=== PATIENT | female | born 1940 | race Caucasian/White ===

== ENCOUNTER 2018-08-10 12:52 | Outpatient (REF) | payer MEDICARE, SELFPAY ==
[2018-08-10 13:49] LABS: Anion Gap 10.5 mmol/L (3-11); BUN 21 mg/dL (7-18); CO2 24.5 mmol/L (21.0-32.0); CREATININE 0.94 mg/dL (0.55-1.02); Calcium 9.2 mg/dL (8.5-10.1); Chloride 106 mmol/L (98-107); Estimated GFR 57.44 (mL/min/1.73m2); Glucose 96 mg/dL (70-100); Potassium 4.3 mmol/L (3.5-5.1); Sodium 141 mmol/L (136-145)
[2018-08-10 13:55] LABS: Hemoglobin A1C 5.9 % (4.5-6.2)
== END 2018-08-10 13:12 ==
LOC: NCHCN 12:52
PROVIDERS: PCP Family Medicine; Visit Provider Family Medicine
DX: N18.3 Chronic kidney disease, stage 3 (moderate) (principal); R73.01 Impaired fasting glucose
CPT/HCPCS: 80048; 83036

== ENCOUNTER 2018-12-26 16:40 | Inpatient (IN) | payer MEDICARE, SELFPAY ==
[2018-12-26 16:50] VITALS: BP 194/89; PULSE 77; RESP 16; TEMP 36.6; O2SAT 96
--- NOTE | 2018-12-26 16:55 | DI.CT_ITS ---
SYMPTOM/DIAGNOSIS: RUQ PAIN, THICKENED GALLBLADDER WALL ABDOMEN AND PELVIC CT: The study was carried out according to the usual protocol with an intravenous administration of 100 cc's of Omnipaque 350. The lower chest is unremarkable. The liver is intact. The gallbladder contains a 3.4 by 3.8 cm. gallstone. There is pronounced wall thickening at 10 mm. There is stranding of the pericholecystic fat and findings consistent with acute cholecystitis. The pancreas, spleen and adrenals are normal. There is no ductal dilatation. Note is made of a number of left renal cysts, the largest of which measures 1.3 cm. There is an apparent duodenal diverticulum and there is mild to moderate wall thickening of the distal antrum and pylorus consistent with possible peptic ulcer disease versus inflammation. Neoplasm not entirely excluded. Colonic diverticulosis is identified. There is no evidence of diverticulitis. The appendix is normal. The bladder is unremarkable. Evaluation of the reproductive organs reveals multiple calcifications in uterine fibroids. There is no evidence of free air in the intraperitoneal space. A small quantity of nonspecific free fluid is noted in the pelvis. No acute bony abnormality is seen. The soft tissues are unremarkable. Calcifications are identified in the abdominal aorta. There is no evidence of an aneurysm. There is no evidence of lymphadenopathy. SUMMARY: Wall thickening and pericholecystic fluid and inflammatory changes in the fat consistent with severe cholecystitis. Note is made of moderate wall thickening involving the distal antrum and pylorus which could represent peptic ulcer disease. The differential would also include infection and less likely, neoplas,.
--- NOTE | 2018-12-26 16:58 | W.ED.GENAD ---
Discharge Plan Disposition Patient Disposition: [facility] INPATIENT Condition: Stable Discharge Details Chief Complaint: Chest Pain Clinical Impression: Acute cholecystitis Reason For Visit: ACUTE CHOLECYSTITIS Admit Date/Time: 12/26/18 19:05 Admit Provider: Ashwini Díaz Attending Provider: Ashwini Díaz Primary Care Provider: Tracie Ghosh ED Provider: Darío Montana Medical Decision Making This is a pleasant 78-year-old female with no significant past medical history who takes no medications except for daily aspirin who presents today for evaluation of epigastric pain. The patient has had this for the last 4 days, she describes it as dull and burning. Worse with food. She denies any chest pain arm pain or neck pain. Physical exam demonstrates notable right upper quadrant reproducible tenderness, she has no significant cardiac risk factors except for age. Cardiac workup was benign, however on initial bedside exam was certain concern for gallbladder pathology with her right upper quadrant tenderness. Portable bedside ultrasound demonstrated notably thickened gallbladder wall greater than 6 mm, CT scan demonstrates a gallbladder wall 10 mm thick, with a distended gallbladder and a large gallstone. Laboratory workup shows an elevated white count of 14.5, normal electrolytes, stable renal function, normal bilirubin AST, ALT and troponin. Lipase is also normal. I did contact Dr. Díaz and discussed the case with her, she agreed with the need for surgery. Recommended starting the patient on Zosyn, she did request that I put in bridge admission orders which I have placed. Patient will be seen by Dr. Aguilar in the morning for surgery. I have extensively reviewed the treatment plan with the patient. I have addressed all patient concerns at this time. I have also discussed the plan with the admitting physician and they agree with the current assessment and plan and have agreed to assume responsibility for the patient. All parties demonstrate verbal understanding and agreement with our assessment and plan at this time. EKG 16: Rate 83, intervals normal, sinus rhythm, no significant ST elevations or depressions, inverted T wave in lead III, Q waves present in lead III and aVF. No other significant abnormalities. No evidence of STEMI. FINDINGS: Lower thorax: No acute findings. ABDOMEN: Liver: Normal. No mass. Gallbladder and bile ducts: 3.4 x 3.8 cm partially calcified gallstone. Marked 10 mm wall thickening of the gallbladder with stranding pericholecystic fat inflammation consistent with severe cholecystitis. Pancreas: Normal. No ductal dilation. Spleen: Normal. No splenomegaly. Adrenals: Normal. No mass. Kidneys and ureters: Multiple left renal cysts with the largest measuring 1.3 cm. Stomach and bowel: There is a duodenal diverticulum. Moderate bowel wall thickening in the distal antrum and pylorus consistent with peptic ulcer disease versus infection versus neoplasm. Severe colonic diverticulosis. Appendix: Normal appendix. PELVIS: Bladder: Unremarkable as visualized. Reproductive: There are one or more calcified uterine fibroids. ABDOMEN and PELVIS: Intraperitoneal space: Small amount of nonspecific free fluid in the dependent portion of the pelvis. Bones/joints: No acute fracture. No dislocation. Soft tissues: Unremarkable. Vasculature: Calcification of the abdominal aorta and/or iliac arteries consistent with atherosclerotic vessel disease. Lymph nodes: Normal. No enlarged lymph nodes. IMPRESSION: 1. Marked 10 mm wall thickening of the gallbladder with stranding pericholecystic fat inflammation consistent with severe cholecystitis. 2. Moderate bowel wall thickening in the distal antrum and pylorus consistent with peptic ulcer disease versus infection versus neoplasm. Dictated and Authenticated by: Sunny Bangura MD. Ordering:ROBERTO CARLOS Chanel MD [facility] General Date/Time Provider Initiated Documentation: 12/26/18 16:52. HPI Narrative: This is a 78-year-old female with no significant past medical history however past surgical history of tubal ligation, who presents today for epigastric pain which she describes as dull and burning for the last 4 days. She did take a notable amount of laxative a few days ago but this did not improve her symptoms. She denies any vomiting or diarrhea, but does admit to worsening of the pain with food. She denies any fever or chills. She did go to see her primary care provider today who recommended that she come in here for evaluation of potential cardiac etiology. She denies any history of cardiac disease, family history of cardiac disease, previous tobacco use, or high cholesterol. She has no complaint of shortness of breath, chest pain, shoulder or arm pain, she denies any cough, fever or chills. Said for the epigastric pain she states that there is some right upper quadrant pain as well, but denies any dysuria or hematuria. No other complaints at this time. No Other modifying factors Related Data Home Medications Medication Instructions Recorded Confirmed cholecalciferol (vitamin D3) 2,000 unit PO .QOD 01/05/17 12/26/18 [Vitamin D3] aspirin 325 mg PRN PRN 12/26/18 12/26/18 Allergies Allergy/AdvReac Type Severity Reaction Status Date / Time dog dander Allergy Unverified 12/26/18 17:46 General Stated Complaint: Chest Pain DOV: 2 Review of Systems Review of Systems All systems reviewed & are unremarkable except as noted in HPI and below PFSH Social History Smoking/Tobacco Use Status: Never Alcohol Intake: never Drug use: Never Substance use type: does not use Do you feel safe at home: Yes Do you feel safe in your relationship?: Yes Exam Narrative Exam Narrative: 1.Const: Well-nourished, Well-developed, appearing stated age 2.Eyes: PERRL, no conjunctival injection, and symmetrical lids. 3.ENT: Atraumatic external nose and ears. Moist MM. Neck: Symmetric, trachea midline, No thyromegaly. 4.CVS: +S1/S2, No murmurs or gallops. Peripheral pulses 2+ and equal in all extremities. Brisk capillary refill in all extremities. 5.RESP: Unlabored respiratory effort. Clear to auscultation bilaterally. No wheezes rales or rhonchi 6.GI: Mild epigastric pain, notable right upper quadrant pain on palpation, negative Tapia sign. No pain at McBurney's point. No other significant abnormality. Bedside limited portable ultrasound demonstrates thickening of the gallbladder wall at 6.6 mm. Questionable polyp versus large stone 7.MSK: Normocephalic/Atraumatic, Extremities w/o deformity or ttp No cyanosis or clubbing, Normal movement of all extremities 8.Skin: Warm, Dry. No rashes or lesions. 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 Sensation grossly intact, no focal neurologic deficits. 10.Psych: (AAO) x3. Appropriate mood and affect Course Vital Signs Temperature 36.6 C 12/26/18 16:50 Pulse 77 12/26/18 16:50 Respiratory Rate 16 12/26/18 16:50 Blood Pressure 194/89 H 12/26/18 16:50 Pulse Oximetry 96 12/26/18 16:50 Temperature 36.6 C 12/26/18 16:50 Temperature Source Temporal Artery Scan 12/26/18 16:50 Pulse 77 12/26/18 16:50 Respiratory Rate 16 12/26/18 16:50 Blood Pressure 194/89 H 12/26/18 16:50 Pulse Oximetry 96 12/26/18 16:50 Oxygen Delivery Method Room Air 12/26/18 16:50 Oxygen Flow Rate 0 12/26/18 16:50
--- NOTE | 2018-12-26 17:03 | ED.GENADUL_ITS ---
Discharge Plan Disposition Patient Disposition: [facility] INPATIENT Condition: Stable Discharge Details Chief Complaint: Chest Pain Clinical Impression: Acute cholecystitis Reason For Visit: ACUTE CHOLECYSTITIS Admit Date/Time: 12/26/18 19:05 Admit Provider: Ashwini Díaz Attending Provider: Ashwini Díaz Primary Care Provider: Tracie Ghosh ED Provider: Darío Montana Medical Decision Making This is a pleasant 78-year-old female with no significant past medical history who takes no medications except for daily aspirin who presents today for evaluation of epigastric pain. The patient has had this for the last 4 days, she describes it as dull and burning. Worse with food. She denies any chest pain arm pain or neck pain. Physical exam demonstrates notable right upper quadrant reproducible tenderness, she has no significant cardiac risk factors except for age. Cardiac workup was benign, however on initial bedside exam was certain concern for gallbladder pathology with her right upper quadrant tenderness. Portable bedside ultrasound demonstrated notably thickened gallbladder wall greater than 6 mm, CT scan demonstrates a gallbladder wall 10 mm thick, with a distended gallbladder and a large gallstone. Laboratory workup shows an elevated white count of 14.5, normal electrolytes, stable renal function, normal bilirubin AST, ALT and troponin. Lipase is also normal. I did contact Dr. Díaz and discussed the case with her, she agreed with the need for surgery. Recommended starting the patient on Zosyn, she did request that I put in bridge admission orders which I have placed. Patient will be seen by Dr. Aguilar in the morning for surgery. I have extensively reviewed the treatment plan with the patient. I have addressed all patient concerns at this time. I have also discussed the plan with the admitting physician and they agree with the current assessment and plan and have agreed to assume responsibility for the patient. All parties demonstrate verbal understanding and agreement with our assessment and plan at this time. EKG 16: Rate 83, intervals normal, sinus rhythm, no significant ST elevations or depressions, inverted T wave in lead III, Q waves present in lead III and aVF. No other significant abnormalities. No evidence of STEMI. FINDINGS: Lower thorax: No acute findings. ABDOMEN: Liver: Normal. No mass. Gallbladder and bile ducts: 3.4 x 3.8 cm partially calcified gallstone. Marked 10 mm wall thickening of the gallbladder with stranding pericholecystic fat inflammation consistent with severe cholecystitis. Pancreas: Normal. No ductal dilation. Spleen: Normal. No splenomegaly. Adrenals: Normal. No mass. Kidneys and ureters: Multiple left renal cysts with the largest measuring 1.3 cm. Stomach and bowel: There is a duodenal diverticulum. Moderate bowel wall thickening in the distal antrum and pylorus consistent with peptic ulcer disease versus infection versus neoplasm. Severe colonic diverticulosis. Appendix: Normal appendix. PELVIS: Bladder: Unremarkable as visualized. Reproductive: There are one or more calcified uterine fibroids. ABDOMEN and PELVIS: Intraperitoneal space: Small amount of nonspecific free fluid in the dependent portion of the pelvis. Bones/joints: No acute fracture. No dislocation. Soft tissues: Unremarkable. Vasculature: Calcification of the abdominal aorta and/or iliac arteries consistent with atherosclerotic vessel disease. Lymph nodes: Normal. No enlarged lymph nodes. IMPRESSION: 1. Marked 10 mm wall thickening of the gallbladder with stranding pericholecystic fat inflammation consistent with severe cholecystitis. 2. Moderate bowel wall thickening in the distal antrum and pylorus consistent with peptic ulcer disease versus infection versus neoplasm. Dictated and Authenticated by: Sunny Bangura MD. Ordering:ROBERTO CARLOS Chanel MD [facility] General Date/Time Provider Initiated Documentation: 12/26/18 16:52 . HPI Narrative: This is a 78-year-old female with no significant past medical history however past surgical history of tubal ligation, who presents today for epigastric pain which she describes as dull and burning for the last 4 days. She did take a notable amount of laxative a few days ago but this did not improve her symptoms. She denies any vomiting or diarrhea, but does admit to worsening of the pain with food. She denies any fever or chills. She did go to see her primary care provider today who recommended that she come in here for evaluation of potential cardiac etiology. She denies any history of cardiac disease, family history of cardiac disease, previous tobacco use, or high cholesterol. She has no complaint of shortness of breath, chest pain, shoulder or arm pain, she denies any cough, fever or chills. Said for the epigastric pain she states that there is some right upper quadrant pain as well, but denies any dysuria or hematuria. No other complaints at this time. No Other modifying factors Related Data Home Medications Medication Instructions Recorded Confirmed cholecalciferol (vitamin D3) 2,000 unit PO .QOD 01/05/17 12/26/18 [Vitamin D3] aspirin 325 mg PRN PRN 12/26/18 12/26/18 Allergies Allergy/AdvReac Type Severity Reaction Status Date / Time dog dander Allergy Unverified 12/26/18 17:46 General Stated Complaint: Chest Pain DOV: 2 Review of Systems Review of Systems All systems reviewed & are unremarkable except as noted in HPI and below PFSH Social History Smoking/Tobacco Use Status: Never Alcohol Intake: never Drug use: Never Substance use type: does not use Do you feel safe at home: Yes Do you feel safe in your relationship?: Yes Exam Narrative Exam Narrative: 1.Const: Well-nourished, Well-developed, appearing stated age 2.Eyes: PERRL, no conjunctival injection, and symmetrical lids. 3.ENT: Atraumatic external nose and ears. Moist MM. Neck: Symmetric, trachea midline, No thyromegaly. 4.CVS: +S1/S2, No murmurs or gallops. Peripheral pulses 2+ and equal in all extremities. Brisk capillary refill in all extremities. 5.RESP: Unlabored respiratory effort. Clear to auscultation bilaterally. No wheezes rales or rhonchi 6.GI: Mild epigastric pain, notable right upper quadrant pain on palpation, negative Tapia sign. No pain at McBurney's point. No other significant abnormality. Bedside limited portable ultrasound demonstrates thickening of the gallbladder wall at 6.6 mm. Questionable polyp versus large stone 7.MSK: Normocephalic/Atraumatic, Extremities w/o deformity or ttp No cyanosis or clubbing, Normal movement of all extremities 8.Skin: Warm, Dry. No rashes or lesions. 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 Sensation grossly intact, no focal neurol ogic deficits. 10.Psych: (AAO) x3. Appropriate mood and affect Course Vital Signs Temperature 36.6 C 12/26/18 16:50 Pulse 77 12/26/18 16:50 Respiratory Rate 16 12/26/18 16:50 Blood Pressure 194/89 H 12/26/18 16:50 Pulse Oximetry 96 12/26/18 16:50 Temperature 36.6 C 12/26/18 16:50 Temperature Source Temporal Artery Scan 12/26/18 16:50 Pulse 77 12/26/18 16:50 Respiratory Rate 16 12/26/18 16:50 Blood Pressure 194/89 H 12/26/18 16:50 Pulse Oximetry 96 12/26/18 16:50 Oxygen Delivery Method Room Air 12/26/18 16:50 Oxygen Flow Rate 0 12/26/18 16:50
[2018-12-26] MEDS: ACETAMINOPHEN 1,000 MG/100 ML BTL 400 MG IVPB (17:11)
[2018-12-26] MEDS: Normal Saline 500 ML 1000 ML IV (17:11)
[2018-12-26 17:14] LABS: Abs Immature Grans 0.03 k/cumm (0.0-0.09); HCT 40.1 % (36.0-46.0); HGB 14.1 g/dL (12.0-15.5); Mean Corp. HGB Concentration 35.2 g/dL (32.0-36.0); Mean Corpuscular Hemoglobin 31.2 pg (27.0-33.0); Mean Corpuscular Volume 88.7 fL (80-95); Platelet Count 212 x1000/uL (130-400); RBC 4.52 m/cumm (4.00-5.20); RBC Distribution Width 12.6 % (11.7-14.6)
[2018-12-26 17:30] LABS: ALT 16 U/L (12-78); AST 21 U/L (15-37); Albumin 3.5 g/dL (3.4-5.0); Alkaline Phosphatase 103 U/L (46-116); Anion Gap 11.6 mmol/L (3-11); BUN 19 mg/dL (7-18); Bilirubin, Direct 0.17 mg/dL (0.00-0.20); Bilirubin, Total 0.7 mg/dL (0.2-1.0); CO2 24.4 mmol/L (21.0-32.0); CREATININE 1.12 mg/dL (0.55-1.02); Calcium 9.3 mg/dL (8.5-10.1); Chloride 98 mmol/L (98-107); Estimated GFR 46.93 (mL/min/1.73m2); Glucose 133 mg/dL (70-100); Lipase 96 U/L (73-393); Potassium 3.8 mmol/L (3.5-5.1); Sodium 134 mmol/L (136-145); Total Protein 7.4 g/dL (6.4-8.2)
[2018-12-26 17:37] LABS: Troponin I < 0.02 ng/mL (0.00-0.06)
[2018-12-26 17:43] LABS: Absolute Eosinophil Count 0.44 k/cumm (0.0-0.7); Absolute Lymphocyte Count 1.16 k/cumm (1.2-3.4); Absolute Monocyte Count 1.89 k/cumm (0.11-0.7); Absolute Neutrophil Count 11.46 k/cumm (1.2-6.7); Atypical Lymphocytes % 3
[2018-12-26 17:44] LABS: Diff Comment Manual Differential; RBC Morphology Normal
[2018-12-26] MEDS: Omnipaque 350 MG/ML 100 ML BTL IJ (18:16)
[2018-12-26] MEDS: Normal Saline Flush 10 ML SYR IVP (18:17)
--- NOTE | 2018-12-26 18:57 | DI.VRAD_ITS ---
EXAM: CT Abdomen and Pelvis With Contrast EXAM DATE/TIME: 12/26/2018 4:58 PM CLINICAL HISTORY: 78 years old, female; Pain; Abdominal pain; Localized; Right upper quadrant (ruq); Patient HX: Ruq pain, gallbladder wall thickening. TECHNIQUE: Imaging protocol: Axial computed tomography images of the abdomen and pelvis with intravenous contrast. Coronal and sagittal reformatted images were created and reviewed. Radiation optimization: All CT scans at this facility use at least one of these dose optimization techniques: automated exposure control; mA and/or kV adjustment per patient size (includes targeted exams where dose is matched to clinical indication); or iterative reconstruction. Contrast material: omnipaque 350 Contrast volume: 100 ml Contrast route: iv COMPARISON: US RENAL ULTRASOUND(P) 08/11/2017 10:11 AM FINDINGS: Lower thorax: No acute findings. ABDOMEN: Liver: Normal. No mass. Gallbladder and bile ducts: 3.4 x 3.8 cm partially calcified gallstone. Marked 10 mm wall thickening of the gallbladder with stranding pericholecystic fat inflammation consistent with severe cholecystitis. Pancreas: Normal. No ductal dilation. Spleen: Normal. No splenomegaly. Adrenals: Normal. No mass. Kidneys and ureters: Multiple left renal cysts with the largest measuring 1.3 cm. Stomach and bowel: There is a duodenal diverticulum. Moderate bowel wall thickening in the distal antrum and pylorus consistent with peptic ulcer disease versus infection versus neoplasm. Severe colonic diverticulosis. Appendix: Normal appendix. PELVIS: Bladder: Unremarkable as visualized. Reproductive: There are one or more calcified uterine fibroids. ABDOMEN and PELVIS: Intraperitoneal space: Small amount of nonspecific free fluid in the dependent portion of the pelvis. Bones/joints: No acute fracture. No dislocation. Soft tissues: Unremarkable. Vasculature: Calcification of the abdominal aorta and/or iliac arteries consistent with atherosclerotic vessel disease. Lymph nodes: Normal. No enlarged lymph nodes. IMPRESSION: 1. Marked 10 mm wall thickening of the gallbladder with stranding pericholecystic fat inflammation consistent with severe cholecystitis. 2. Moderate bowel wall thickening in the distal antrum and pylorus consistent with peptic ulcer disease versus infection versus neoplasm. Dictated and Authenticated by: Sunny Bangura MD. Ordering:ROBERTO CARLOS Chanel MD
[2018-12-26 19:09] VITALS: BP 167/77; PULSE 64; RESP 16; TEMP 36.7; O2SAT 100
[2018-12-26] MEDS: PIPERACILLIN/TAZO 3.375 GM in Normal Saline 50 ML IVPB (19:22)
[2018-12-26 19:52] VITALS: BP 175/79; PULSE 68; RESP 16; TEMP 36.7; O2SAT 97
[2018-12-26 23:11] VITALS: BP 163/66; PULSE 55; RESP 17; TEMP 37.1; O2SAT 99
[2018-12-27] VITALS (13 sets, daily range): BP systolic 147–172; BP diastolic 41–86; PULSE 60–79; RESP 17–26; TEMP 36.4–37.3; O2SAT 95–99
[2018-12-27] MEDS: ACETAMINOPHEN 1,000 MG/100 ML BTL 400 MG IVPB ×4 (02:00→23:49)
[2018-12-27] MEDS: Normal Saline Flush 10 ML SYR IVP ×3 (02:00→17:49)
--- NOTE | 2018-12-27 09:58 | PDOC.CMIN ---
Care Management Initial Assess REASON FOR HOSPITALIZATION:: Acute Cholecystitis PAST MEDICAL HISTORY/PAST SURGICAL HISTORY:: Acute cholecystitis (Acute). Acute cholecystitis due to biliary calculus (Acute). Gallstones and inflammation of gallbladder without obstruction (Acute). Tubal ligation status (Acute). Hx of tonsillectomy (Chronic) PREVIOUS FUNCTIONAL STATUS/SOCIAL/FAMILY SUPPORTS:: Tiara resides with her , Jagdish in [place], [place]. CURRENT FUNCTIONAL STATUS:: Tiara was in the OR for surgical intervention when CM attmpted to meet with her. ADVANCE DIRECTIVES:: On file at [facility], Jagdish as agent, daughter Lauren Alford as alternate Has patient been provided with information about the portal?: No Did the patient sign up for the portal?: No CODE STATUS:: Full Code INSURANCE COVERAGE / FINANCIAL ISSUES:: Medicare. AARP CURRENT HOME/COMMUNITY SERVICES/EQUIPMENT:: No current services, equipment. PRIMARY CARE PHYSICIAN:: Tracie Ghosh POTENTIAL DISCHARGE NEEDS:: Follow up appointments. PATIENT/FAMILY EDUCATION NEEDS:: Review discharge instructions, discuss Ask Me Three. ANTICIPATED BARRIERS TO DISCHARGE:: None identified. TRANSPORTATION:: Via private vehicle with her . PLAN:: Tiara will be brought to the OR for surgical intervention. She will likely return home with no anticipated services at this time. She will transport via private vehicle with her .
[2018-12-27] MEDS: Normal Saline 1,000 ML 125 ML IV ×2 (10:13→16:30)
[2018-12-27 10:29] LABS: Abs Immature Grans 0.02 k/cumm (0.0-0.09); Absolute Basophil Count 0.03 k/cumm (0.0-0.2); Absolute Eosinophil Count 0.15 k/cumm (0.0-0.7); Absolute Lymphocyte Count 0.99 k/cumm (1.2-3.4); Absolute Monocyte Count 1.36 k/cumm (0.11-0.7); Basophils % 0.3; Eosinophils % 1.3; HCT 36.2 % (36.0-46.0); HGB 12.7 g/dL (12.0-15.5); Immature Grans % 0.2; Lymphocytes % 8.8; Mean Corp. HGB Concentration 35.1 g/dL (32.0-36.0); Mean Corpuscular Hemoglobin 31.4 pg (27.0-33.0); Mean Corpuscular Volume 89.4 fL (80-95); Mean Platelet Volume 11.2 fL (8.0-11.0); Monocytes % 12.1; Neutrophils % 77.3; Platelet Count 193 x1000/uL (130-400); RBC 4.05 m/cumm (4.00-5.20); RBC Distribution Width 12.5 % (11.7-14.6); White Blood Cell Count 11.25 k/cumm (4.4-10.8)
[2018-12-27 10:39] LABS: Lipase 96 U/L (73-393)
[2018-12-27] MEDS: PIPERACILLIN/TAZO 3.375 GM in Normal Saline 50 ML IVPB ×3 (10:39→21:20)
--- NOTE | 2018-12-27 11:19 | PHARADMIT ---
Addendum entered by Martin Hinds III 12/28/18 11:47: Pharmacy Note Subjective S/P Laparoscopic chollecystectomy Day#1. Tolerating cleas, advancing to soft diet. Objective VS-OK, K+3.6 SCr-1.36 WBC-12.79 H&H-10.2/30.0 Plts-172 Assessment IV ABX continue (Zosyn). On Lovenox Plan Probable discharge home tomorrow Original Note: Admission Pharmacy Clinical Review acute cholecystitis Code Status Full Code Current Weight Wgt-61.2 kg Renally Cleared and Narrow Therapeutic Index Meds CrCl~35.1 Meds-ok QTc Value / Action Taken QTc-416 na BP Control, Fever BP- 153/71 Tmax-37.1 Electrolytes reviewed Na- 134 K+3.8 DVT Prophylaxis No to OR Opiate Usage / Scheduled Bowel Regimen Ordered No No Plt/SCr for Heparin / Enoxaparin Plts-193 SCr-1.12 INR for Warfarin NA H/H stable, WBC/Bands H&H 12.7/36.2 WBC- 11.25 Antibiotic appropriateness Zosyn Cultures and Sensitivities none Surgical ABX d/c within 24 hr na DM control / Insulin Dosing BG-133 Heart Failure (Check EF%) (AMADO's, B-Block, Diuretics) None IV to PO Switch No Home Meds Reviewed Yes Home Meds Not Ordered Poncho-AC, Vit-D, ASA Comments
--- NOTE | 2018-12-27 11:34 | HPE_ITS ---
Date of service: 12/27/18 Time of Service: 11:33 Assessment and Plan (1) Tubal ligation status: Current visit: Yes Status: Acute Informed consent is obtained for the procedural (explained in simple layman's terms that the pt. and/or family could understand) explaining risks vs benefits and alternatives to the procedure and consequences if we do not do the procedure. Risks include but are not limited to: bleeding, infections, pneumonia, blood clots/DVT/PE, anesthesia (aspiration, damage to teeth/airway/WI/CVA//prolonged mechanical ventilation/PTX/IV infections), damage to bowel, bladder, blood vessels, ureters, bile ducts. Wound infections requiring further surgery. Scarring and disfigure ment. Subsequent bowel obstructions from scar tissue. Possible open procedure if minimally invasive procedure is being attempted. (2) Hx of tonsillectomy: Current visit: Yes Status: Chronic historical (3) Gallstones and inflammation of gallbladder without obstruction: Current visit: Yes Status: Acute on zosyn as above (4) Acute cholecystitis: Current visit: Yes Status: Acute as above (5) Acute cholecystitis due to biliary calculus: Current visit: Yes Status: Acute as above History of Present Illness Narrative: pt developed RUQ pain Monday. no radiation. her meal prior to the pain was oatmeal and vanilla pudding. She doesn't eat very spicy/rich foods at baseline. She has never had stomach problems. He sister had her GB out this summer She developed n/v as well. no diarrhea. no recent ravel or changes in medications She doesn't take any meds at home. no hx of [place]/CVA/DM. non smoker Today she is feeling OK and no pain. no n/v. today we d/w surgery, what she could expect during the procedure/post procedure, recovery times and risks, Informed consent is obtained for the procedural (explained in simple layman's terms that the pt. and/or family could understand) explaining risks vs benefits and alternatives to the procedure and consequences if we do not do the procedure. Risks include but are not limited to: bleeding, infections, pneumonia, blood clots/DVT/PE, anesthesia (aspiration, damage to teeth/airway/WI/CVA//prolonged mechanical ventilation/PTX/IV infections), damage to bowel, bladder, blood vessels, ureters, bile ducts. Scarring and disfigurement. Subsequent bowel obstructions from scar tissue. Possible open procedure if minimally invasive procedure is being attempted. we d/w possibility of post pedro diarrhea and postOP nausea. also she may need to be on low fat diet for some time CT reviewed: ABDOMEN AND PELVIC CT: The study was carried out according to the usual protocol with an intravenous administration of 100 cc's of Omnipaque 350. The lower chest is unremarkable. The liver is intact. The gallbladder contains a 3.4 by 3.8 cm. gallstone. There is pronounced wall thickening at 10 mm. There is stranding of the perich olecystic fat and findings consistent with acute cholecystitis. The pancreas, spleen and adrenals are normal. There is no ductal dilatation. Note is made of a number of left renal cysts, the largest of which measures 1.3 cm. There is an apparent duodenal diverticulum and there is mild to moderate wall thickening of the distal antrum and pylorus consistent with possible peptic ulcer disease maldonado sherlyn inflammation. Neoplasm not entirely excluded. Colonic diverticulosis is identified. There is no evidence of diverticulitis. The appendix is normal. The bladder is unremarkable. Evaluation of the reproductive organs reveals multiple calcifications in uterine fibroids. There is no evidence of free air in the intraperitoneal space. A small quantity of nonspecific free fluid is noted in the pelvis. No acute bony abnormality is seen. The soft tissues are unremarkable. Calcifications are identified in the abdominal aorta. There is no evidence of an aneurysm. There is no evidence of lymphadenopathy. SUMMARY: Wall thickening and pericholecystic fluid and inflammatory changes in the fat consistent with severe cholecystitis. Note is made of moderate wall thickening involving the distal antrum and pylorus which could represent peptic ulcer disease. The differential would also include infection and less likely, neoplas,. . Review of Systems Review of Systems All systems reviewed & are unremarkable except as noted in HPI and below Constitutional Reports as per HPI, Reports system reviewed and no additional complaints, except as docu, Denies anorexia, Denies chills, Denies difficulty sleeping, Denies fatigue, Denies headache(s), Denies lethargy, Denies malaise, Denies poor appetite, Denies weakness, Denies weight gain and Denies weight loss Eyes Reports as per HPI, Reports system reviewed and no additional complaints, except as docu and Denies change in vision ENT Reports system reviewed and no additional complaints, except as docu, Reports as per HPI, Denies change in voice, Denies dental pain, Denies dysphagia, Denies dizziness, Denies facial pain, Denies headache(s) and Denies odynophagia Cardiovascular Reports as per HPI, Reports system reviewed and no additional complaints, except as docu, Denies chest pain, Denies chest pain with activity, Denies syncope, Denies leg edema and Denies dyspnea Respiratory Reports as per HPI, Reports system reviewed and no additional complaints, except as docu, Denies chest congestion, Denies cough, Denies pain with cough and D enies dyspnea Gastrointestinal Reports as per HPI, Reports system reviewed and no additional complaints, except as docu, Denies abdominal pain, Denies bloating, Denies change in bowel habits, Denies change in stool character, Denies constipation, Denies cramping, Denies dysphagia, Denies early satiety, Denies heartburn, Denies diarrhea, Denies nause a, Denies odynophagia and Denies vomiting Comments: RUQ pain see HPI none today Musculoskeletal Reports system reviewed and no additional complaints, except as docu, Reports as per HPI, Denies abnormal gait, Denies arthralgias and Denies muscle weakness Integumentary/Breasts Reports system reviewed and no additional complaints, except as docu, Reports as per HPI, Denies changing lesions, Denies new lesions and Denies jaundice Neurologic Reports system reviewed and no additional complaints, except as docu, Reports as per HPI, Denies abnormal speech, Denies abnormal gait, Denies dizziness, Denies syncope, Denies headache(s), Denies memory loss and Denies weakness Psychiatric Reports system reviewed and no additional complaints, except as docu, Reports as per HPI, Denies change in appetite and Denies memory loss Endocrine Denies fatigue, Denies polydipsia and Denies polyuria Hematologic/Lymphatic Reports system reviewed and no additional complaints, except as docu, Denies easy bleeding and Denies easy bruising Allergic/Immunologic Denies system reviewed and no additional complaints, except as docu, Reports as per HPI and Denies urticaria PFSH Medical History Acute cholecystitis (Acute) Acute cholecystitis due to biliary calculus (Acute) Gallstones and inflammation of gallbladder without obstruction (Acute) Tubal ligation status (Acute) Surgical History Hx of tonsillectomy (Chronic) Social History Smoking/Tobacco Use Status: Never Alcohol Intake: never Drug use: Never Substance use type: does not use Do you feel safe at home: Yes Do you feel safe in your relationship?: Yes Meds Home Medications Medication Instructions Recorded Confirmed Type cholecalciferol (vitamin D3) 2,000 unit PO .QOD 01/05/17 12/26/18 History [Vitamin D3] aspirin 325 mg PRN PRN 12/26/18 12/26/18 History Allergies Allergy/AdvReac Type Severity Reaction Status Date / Time dog dander Allergy Unverified 12/26/18 17:46 Exam Const General: cooperative, healthy appearing, comfortable, no acute distress, well developed and well groomed Nutritional Appearance: average body habitus and well nourished Orientation: alert, awake and oriented x3 HENMT Head: normal to inspection, normocephalic and atraumatic Ears: hearing grossly normal bilaterally and external ears normal General nose exam: external nose normal Face and sinus: normal facial exam and sinuses nontender Mouth: oral mucosae normal, lip normal, tongue normal and moist mucous membranes Teeth and gingiva: dentition normal Eyes General: appearance normal, both eyes and all related structures Conjunctivae: conjunctivae normal Sclera: sclerae normal Pupils: PERRL Neck Neck: normal visual inspection and full ROM Chest Chest: normal inspection of the chest Resp Effort & Inspection: normal respiratory effort, able to speak in complete s entences, no cough, no nasal flaring, not tachypneic and no use of accessory muscles Auscultation: clear to auscultation bilaterally, no rales, no rhonchi and no wheezes Cardio Jugular venous pressure: no JVD Rate: regular rate Rhythm: regular rhythm GI Inspection: normal to inspection, no edema and non-distended Palpation: soft, no masses, nontender and No ascites Auscultation: normal bowel sounds Skin General skin exam: no rashes or lesions noted Trauma: no lacerations or abrasions Neuro General: alert, oriented x3, oriented, gait normal, moves all extremities, no focal motor deficits and CN's II-XI intact bilaterally Cognition: normal cognition Speech: speech normal Gait: normal gait Motor: muscle tone normal throughout Extrem General: normal to inspection, full ROM and no clubbing, cyanosis or edema Psych Appearance: grossly normal and well kempt Mental Status: mental status grossly normal Speech and Movement: speech and movement normal Affect: normal affect Results Labs : 12/27/18 10:20 12/26/18 17:00 Laboratory Results - last 24 hr 12/26/18 12/26/18 12/27/18 17:00 17:00 10:20 WBC 14.50 H RBC 4.52 Hgb 14.1 Hct 40.1 MCV 88.7 MCH 31.2 MCHC 35.2 RDW 12.6 Plt Count 212 MPV 11.0 Immature Gran % 0.0 Neutrophils % 75.0 Band Neutrophils % 4.0 Lymphocytes % 5.0 Atypical Lymphs % 3 Monocytes % 13.0 Eosinophils % 3.0 Basophils % 0.0 Absolute Neutrophils 11.46 H Absolute Lymphocytes 1.16 L Absolute Monocytes 1.89 H Absolute Eosinophils 0.44 Absolute Basophils 0.00 Differential Comment Manual differential RBC Morphology Normal Sodium 134 L Potassium 3.8 Chloride 98 Carbon Dioxide 24.4 Anion Gap 11.6 H BUN 19 H Creatinine 1.12 H Estimated GFR/1.73 m2 46.93 Glucose 133 H Calcium 9.3 Total Bilirubin 0.7 Conjugated Bilirubin 0.17 AST 21 ALT 16 Alkaline Phosphatase 103 Troponin I < 0.02 Total Protein 7.4 Albumin 3.5 Lipase 96 96 12/27/18 10:20 WBC 11.25 H RBC 4.05 Hgb 12.7 Hct 36.2 MCV 89.4 MCH 31.4 MCHC 35.1 RDW 12.5 Plt Count 193 MPV 11.2 H Immature Gran % 0.2 Neutrophils % 77.3 Band Neutrophils % Lymphocytes % 8.8 Atypical Lymphs % Monocytes % 12.1 Eosinophils % 1.3 Basophils % 0.3 Absolute Neutrophils 8.70 H Absolute Lymphocytes 0.99 L Absolute Monocytes 1.36 H Absolute Eosinophils 0.15 Absolute Basophils 0.03 Differential Comment RBC Morphology Sodium Potassium Chloride Carbon Dioxide Anion Gap BUN Creatinine Estimated GFR/1.73 m2 Glucose Calcium Total Bilirubin Conjugated Bilirubin AST ALT Alkaline Phosphatase Troponin I Total Protein Albumin Lipase Last Vital Signs Temp 36.7 C 12/27/18 09:21 Pulse 60 12/27/18 06:55 Resp 18 12/27/18 06:55 BP 153/71 H 12/27/18 06:55 Pulse Ox 95 12/27/18 10:00
[2018-12-27] MEDS: Bupivacaine 0.25% Pres-Free 30 ML VIAL ×2 (12:26→12:38)
[2018-12-27] MEDS: Lactated Ringers 1,000 ML 150 ML IV (12:30)
[2018-12-27 13:07] LABS: ALT 14 U/L (12-78); AST 20 U/L (15-37); Albumin 2.9 g/dL (3.4-5.0); Alkaline Phosphatase 97 U/L (46-116); Anion Gap 10.6 mmol/L (3-11); BUN 17 mg/dL (7-18); Bilirubin, Total 0.6 mg/dL (0.2-1.0); CO2 22.4 mmol/L (21.0-32.0); CREATININE 1.06 mg/dL (0.55-1.02); Calcium 8.9 mg/dL (8.5-10.1); Chloride 104 mmol/L (98-107); Estimated GFR 50.01 (mL/min/1.73m2); Glucose 102 mg/dL (70-100); Potassium 3.9 mmol/L (3.5-5.1); Sodium 137 mmol/L (136-145); Total Protein 6.4 g/dL (6.4-8.2)
--- NOTE | 2018-12-27 13:55 | INITIAL_ITS ---
Care Management Initial Assess REASON FOR HOSPITALIZATION:: Acute Cholecystitis PAST MEDICAL HISTORY/PAST SURGICAL HISTORY:: Acute cholecystitis (Acute). Acute cholecystitis due to biliary calculus (Acute). Gallstones and inflammation of gallbladder without obstruction (Acute). Tubal ligation status (Acute). Hx of tonsillectomy (Chronic) PREVIOUS FUNCTIONAL STATUS/SOCIAL/FAMILY SUPPORTS:: Tiara resides with her , Jagdish in [place], [place]. CURRENT FUNCTIONAL STATUS:: Tiara was in the OR for surgical intervention when CM attmpted to meet with her. ADVANCE DIRECTIVES:: On file at [facility], Jagdish as agent, daughter Lauren Alford as alternate Has patient been provided with information about the portal?: No Did the patient sign up for the portal?: No CODE STATUS:: Full Code INSURANCE COVERAGE / FINANCIAL ISSUES:: Medicare. AARP CURRENT HOME/COMMUNITY SERVICES/EQUIPMENT:: No current services, equipment. PRIMARY CARE PHYSICIAN:: Tracie Ghosh POTENTIAL DISCHARGE NEEDS:: Follow up appointments. PATIENT/FAMILY EDUCATION NEEDS:: Review discharge instructions, discuss Ask Me Three. ANTICIPATED BARRIERS TO DISCHARGE:: None identified. TRANSPORTATION:: Via private vehicle with her . PLAN:: Tiara will be brought to the OR for surgical intervention. She will likely return home with no anticipated services at this time. She will transport via private vehicle with her .
--- NOTE | 2018-12-27 14:20 | GB_PTH ---
PATIENT: Tiara Duke LOC: [place] [facility]#:[id number] AGE/SX: 78/F ROOM: RE12/26/[address]: Ashwini Díaz MD : [id number] BED: A DIS: 12/29/2018 SPEC #: [id number] RECD: 12/27/18 18:03 STATUS: ALICJA KAPOOR #: [id number] HAILEE: 12/27/18 14:[address]: Ashwini Díaz DEPT: Surgical Specimen RECD BY: Ann Galloway ENTERED: 12/27/18 18:05 SP TYPE: GB OTHR DR: Tracie Ghosh Tissues: 1 - GALLBLADDER Procedures: GROSS AND MICRO LEVEL 3 Comments: [id number]
[2018-12-27] MEDS: Cellulose,Oxidized 4X8 1 PACKET MC (14:33)
--- NOTE | 2018-12-27 14:49 | W.PM.OP ---
Date of service: 12/27/18 Time of Service: 14:50 Operative Note DATE OF PROCEDURE: 12/27/18 PRE-OP DIAGNOSIS: acute pedro w/ stones POST-OP DIAGNOSIS: same PROCEDURE: lap pedro SURGEON: Lali Wilburn ASSISTING SURGEON: Micah Russell TEXTILE STYLIST: Lali Polo ANESTHESIA: GETA ESTIMATED BLOOD LOSS: 50 PATHOLOGY: other TOURNIQUET TIME: 0 COMPLICATIONS: None Patient was transported to: PACU Patient's condition: stable Implants: 0 Indications: infection Findings: severe inflammation and infection. 2x2 stone in neck of GB Procedure Description: dictated
--- NOTE | 2018-12-27 14:53 | ROE_ITS ---
Date of service: 12/27/18 Time of Service: 14:50 Operative Note DATE OF PROCEDURE: 12/27/18 PRE-OP DIAGNOSIS: acute pedro w/ stones POST-OP DIAGNOSIS: same PROCEDURE: lap pedro SURGEON: Lali Wilburn ASSISTING SURGEON: Micah Russell OIL SCOUT: Lali Polo ANESTHESIA: GETA ESTIMATED BLOOD LOSS: 50 PATHOLOGY: other TOURNIQUET TIME: 0 COMPLICATIONS: None Patient was transported to: PACU Patient's condition: stable Implants: 0 Indications: infection Findings: severe inflammation and infection. 2x2 stone in neck of GB Procedure Description: dictated
[2018-12-27] MEDS: fentaNYL 100 MCG/2 ML VIAL IVP (15:30)
--- NOTE | 2018-12-27 17:32 | W.PM.PROGNOT ---
Date of Service Date of service: 12/27/18 Time of Service: 17:32 Subjective Interval history since last seen: Pt's pain is c/o pain but also very sleepy. No family is with her still. Pt is tolerating diet with no nausea or vomiting. The pt is having no chest pain, SOB, productive cough; no calf pain or swelling. She had a jules cath in during sx and has not urinated yet. I reviewed with the pt there prognosis and today's findings. We discussed the importance of walking and pulmonary toilet to avoid blood clots and pneumonia. Continue current treatment regimin and supportive care. abx DVT prevention pulm toilet pt on no hme meds/no PMHx Objective Objective Clinical Data: Abnormal lab results 12/26/18 12/26/18 12/27/18 Range/Units 17:00 17:00 10:20 WBC (4.4-10.8) k/cumm MPV (8.0-11.0) fL Absolute Neutrophils 11.46 H (1.2-6.7) k/cumm Absolute Lymphocytes 1.16 L (1.2-3.4) k/cumm Absolute Monocytes 1.89 H (0.11-0.7) k/cumm Sodium 134 L (136-145) mmol/L Anion Gap 11.6 H (3-11) mmol/L BUN 19 H (7-18) mg/dL Creatinine 1.12 H 1.06 H (0.55-1.02) mg/dL Glucose 133 H 102 H (70-100) mg/dL Albumin 2.9 L (3.4-5.0) g/dL 12/27/18 Range/Units 10:20 WBC 11.25 H (4.4-10.8) k/cumm MPV 11.2 H (8.0-11.0) fL Absolute Neutrophils 8.70 H (1.2-6.7) k/cumm Absolute Lymphocytes 0.99 L (1.2-3.4) k/cumm Absolute Monocytes 1.36 H (0.11-0.7) k/cumm Sodium (136-145) mmol/L Anion Gap (3-11) mmol/L BUN (7-18) mg/dL Creatinine (0.55-1.02) mg/dL Glucose (70-100) mg/dL Albumin (3.4-5.0) g/dL Vital Signs Temperature 36.8 C 12/27/18 16:19 Temperature Source Tympanic 12/27/18 16:19 Pulse 75 12/27/18 16:19 Pulse Rhythm Regular 12/27/18 07:40 Respiratory Rate 18 12/27/18 16:19 Respiratory Effort Non-Labored 12/27/18 07:40 Respiratory Depth Normal 12/27/18 07:40 Respiratory Pattern Normal 12/27/18 07:40 Blood Pressure 168/79 H 12/27/18 16:19 Pulse Oximetry 97 12/27/18 16:19 Respiratory End-tidal CO2 30 12/27/18 15:45 Oxygen Delivery Method Room Air 12/27/18 16:19 Oxygen Flow Rate 0 12/27/18 16:19 Pain Level 3 12/27/18 17:04 Comment 12/27/18 06:55 Intake & Output 12/26/18 12/27/18 12/27/18 23:59 11:59 23:59 Intake Total 650 / 650 269.167 / 8222.119 4861.666 / 1451.833 Output Total 400 / 400 1050 / 1060 10 / 1060 Balance 250 / 250 -780.833 / 576.980 1145.666 / 391.833 Weight 60.781 kg 61.2 kg Intake: IV 650 / 650 269.167 / 7522.408 9791.666 / 1451.833 Output: Urine 400 / 400 1050 / 1060 10 / 1060 Other: Urine Color Yellow Light Ashley Pale Yellow Urine Appearance Clear Clear Clear Urine Odor None Comment Void x1 in the toilet. Emesis Description None Voiding Methods Toilet Toilet Laboratory Results WBC 11.25 k/cumm (4.4-10.8) H 12/27/18 10:20 RBC 4.05 m/cumm (4.00-5.20) 12/27/18 10:20 Hgb 12.7 g/dL (12.0-15.5) 12/27/18 10:20 Hct 36.2 % (36.0-46.0) 12/27/18 10:20 MCV 89.4 fL (80-95) 12/27/18 10:20 MCH 31.4 pg (27.0-33.0) 12/27/18 10:20 MCHC 35.1 g/dL (32.0-36.0) 12/27/18 10:20 RDW 12.5 % (11.7-14.6) 12/27/18 10:20 Plt Count 193 x1000/uL (130-400) 12/27/18 10:20 MPV 11.2 fL (8.0-11.0) H 12/27/18 10:20 Immature Gran % 0.2 12/27/18 10:20 Neutrophils % 77.3 12/27/18 10:20 Band Neutrophils % 4.0 % 12/26/18 17:00 Lymphocytes % 8.8 12/27/18 10:20 Atypical Lymphs % 3 12/26/18 17:00 Monocytes % 12.1 12/27/18 10:20 Eosinophils % 1.3 12/27/18 10:20 Basophils % 0.3 12/27/18 10:20 Absolute Neutrophils 8.70 k/cumm (1.2-6.7) H 12/27/18 10:20 Absolute Lymphocytes 0.99 k/cumm (1.2-3.4) L 12/27/18 10:20 Absolute Monocytes 1.36 k/cumm (0.11-0.7) H 12/27/18 10:20 Absolute Eosinophils 0.15 k/cumm (0.0-0.7) 12/27/18 10:20 Absolute Basophils 0.03 k/cumm (0.0-0.2) 12/27/18 10:20 Differential Comment Manual differential 12/26/18 17:00 RBC Morphology Normal 12/26/18 17:00 Sodium 137 mmol/L (136-145) 12/27/18 10:20 Potassium 3.9 mmol/L (3.5-5.1) 12/27/18 10:20 Chloride 104 mmol/L (98-107) 12/27/18 10:20 Carbon Dioxide 22.4 mmol/L (21.0-32.0) 12/27/18 10:20 Anion Gap 10.6 mmol/L (3-11) 12/27/18 10:20 BUN 17 mg/dL (7-18) 12/27/18 10:20 Creatinine 1.06 mg/dL (0.55-1.02) H 12/27/18 10:20 Estimated GFR/1.73 m2 50.01 (mL/min/1.73m2) 12/27/18 10:20 Glucose 102 mg/dL (70-100) H 12/27/18 10:20 Calcium 8.9 mg/dL (8.5-10.1) 12/27/18 10:20 Total Bilirubin 0.6 mg/dL (0.2-1.0) 12/27/18 10:20 Conjugated Bilirubin 0.17 mg/dL (0.00-0.20) 12/26/18 17:00 AST 20 U/L (15-37) 12/27/18 10:20 ALT 14 U/L (12-78) 12/27/18 10:20 Alkaline Phosphatase 97 U/L (46-116) 12/27/18 10:20 Troponin I < 0.02 ng/mL (0.00-0.06) 12/26/18 17:00 Total Protein 6.4 g/dL (6.4-8.2) 12/27/18 10:20 Albumin 2.9 g/dL (3.4-5.0) L 12/27/18 10:20 Lipase 96 U/L (73-393) 12/27/18 10:20
--- NOTE | 2018-12-27 17:44 | ROE_ITS ---
DATE OF PROCEDURE: December 27, 2018 PREOPERATIVE DIAGNOSIS: Acute cholecystitis and cholelithiasis. POSTOPERATIVE DIAGNOSIS: Acute cholecystitis and cholelithiasis. PROCEDURE: Laparoscopic cholecystectomy. SURGEON: Lali Wilburn D.O. CLOTH PATTERN MAKER: Micah Russell PA-C, and Lali Polo PA-C ANESTHESIA: General. ESTIMATED BLOOD LOSS: 50 cc SPECIMEN: Gallbladder was sent for pathology. DRAINS: No drains were placed. COMPLICATIONS: The patient tolerated the procedure well without any immediate complications. INDICATIONS: This is a 78-year-old female who presented to the ED with acute cholecystitis and was admitted for a laparoscopic cholecystectomy. The patient was brought down to the Operating Room today for a laparoscopic cholecystectomy. Informed consent was obtained explaining the risks and benefits of the procedure including, but not limited to, bleeding, bleeding, infection, pneumonia, blood clots, possible damage to bowel, bladder, blood vessels, bile ducts, bile leak, chronic diarrhea, chronic pain, open surgery, complications of anesthesia, and other unforetold complications. PROCEDURE: The patient was brought to the operative room suite and placed in supine position. Anesthesia was administered per the Department of Anesthesia. The patient was prepped and draped in the usual sterile fashion using a ChloraPrep scrub solution. A time-out was performed. She did have a preoperative NG tube and Lara catheter placed. She did receive preoperative antibiotics. Thirty cc's of 0.25% Marcaine was used to create local field blocks. A stab incision was made in the umbilicus and then the Veress needle was inserted. Drop test was positive and insufflation was begun. When 15 mmHg was noted on the monitor, a number 5 port was inserted. The camera was inserted through the port and showed no damage to underlying structures. A 12-mm port was then placed in the epigastric position as well as two 5-mm in the right upper quadrant to facilitate dissection and visualization. There were all done under direct visualization and following creation of local field blocks. Inspection in the abdomen showed no damage to underlying structures from port placement. Small bowel and colon were then visualized and were normal in appearance. There was some scarring around the left fallopian tube. She did have a lot of scarring in the right lower quadrant and some small bowel adhesions to the anterior abdominal wall and these were left in place. The stomach appeared grossly normal. The omentum, pylorus, and duodenum were adhered up to the gallbladder and these were taken down with a combination of blunt and sharp dissection. Electrocautery was used to provide hemostasis. There was significant edema in the gallbladder wall. The gallbladder wall was thickened. I did attempt to aspirate it to facilitate manipulation of the gallbladder. She had white bile coming from the gallbladder. We were unable to aspirate anything from the gallbladder. She had a very large stone impacted in the gallbladder neck which also made maneuvering the gallbladder more difficult. The hepatoduodenal ligament was entered. The tissue was very woody and indurated, making for a very difficult dissection. I was able to dissect out the cystic duct and artery. It did take us two hours to dissect out these structures. They were identified, clips were applied, and they were ligated. The remainder of the gallbladder was excised from the lower bed using electrocautery and was placed in a bag. We did have to enlarge the incision to facilitate gallbladder removal. The abdomen was then copiously irrigated and all irrigation was removed. There was a slight amount of ooze in the GB fossa and Surgicel was placed into the liver bed. There was no bleeding or bile leakage from the clips. All ports were removed. Sponge and needle counts were correct. The fascia under the 12- mm port was closed with #2-0 Prolene in an interrupted fashion. The port sites were irrigated and the skin was closed with #4-0 Monocryl in a running subcuticular step fashion. Steri-Strips and sterile dressings were applied. The patient tolerated the procedure well without complications. She was transferred to the Recovery Room in stable condition. cc: Tracie Ghosh M.D.
[2018-12-28] VITALS (7 sets, daily range): BP systolic 119–179; BP diastolic 58–81; PULSE 62–84; RESP 16–20; TEMP 36.8–37.6; O2SAT 94–96
[2018-12-28] MEDS: Normal Saline 1,000 ML 125 ML IV ×2 (04:45→12:56)
[2018-12-28] MEDS: PIPERACILLIN/TAZO 3.375 GM in Normal Saline 50 ML IVPB ×3 (05:29→22:35)
[2018-12-28] MEDS: Enoxaparin 40 MG/0.4 ML SYR SC (08:08)
--- NOTE | 2018-12-28 08:36 | PDOC.CMDIS ---
LACE Index Scoring Tool - Questions: Length of Stay (in days): 2 Acuity (Admit via E.D.?): Yes Comorbidities: Mild Liver/Renal Disease E.D. Visits: 1 - Answers: Total Score: 8 Risk of Readmission: Low Risk Care Management Discharge Reason for Hospitalization: Acute Cholecystitis Discharge Plan: Tiara will return home with no anticipated services at this time. She will follow up with her PCP and plan of care as prescribed including activity restrictions. She will transport via private vehicle with her . Patient/Family Education Needs: Review of discharge instructions, discuss Ask Me Three.
--- NOTE | 2018-12-28 08:50 | W.PM.PROGNOT ---
Documented by User: DIGNA Valdes 12/28/18 09:02 Date of Service Date of service: 12/28/18 Time of Service: 08:51 Assessment and Plan (1) Acute cholecystitis due to biliary calculus: Current visit: Yes Status: Acute as above (2) S/P laparoscopic cholecystectomy: Current visit: Yes Status: Acute POD #1 DIET- Tolerating clear liquids, if she does okay with breakfast tray will progress to surgical soft diet LABS- Pending PAIN- Currently well managed with tylenol and ice packs ACTIVITY- Encouraged ambulation TID Continue IV Antibiotics Disposition- D/C home once tolerating soft diet and pain is managed Subjective Interval history since last seen: Arrive with Ms. Duke sitting up in the chair. She reports that she is feeling well, and reports some soreness along her incision sites. which she has been using ice packs to treat. She denies nausea, vomiting or fevers. She reports that she has been tolerating the clear liquid diet without any issues. Exam Const General: cooperative and comfortable Orientation: alert and oriented x3 GI Inspection: normal to inspection and incision (ecchymosis around incision sites. ) Palpation: soft, no guarding and tender in the epigastrum Auscultation: normal bowel sounds Objective Objective Clinical Data: Abnormal lab results 12/27/18 12/27/18 Range/Units 10:20 10:20 WBC 11.25 H (4.4-10.8) k/cumm MPV 11.2 H (8.0-11.0) fL Absolute Neutrophils 8.70 H (1.2-6.7) k/cumm Absolute Lymphocytes 0.99 L (1.2-3.4) k/cumm Absolute Monocytes 1.36 H (0.11-0.7) k/cumm Creatinine 1.06 H (0.55-1.02) mg/dL Glucose 102 H (70-100) mg/dL Albumin 2.9 L (3.4-5.0) g/dL Vital Signs Temperature 36.8 C 12/28/18 07:41 Temperature Source Tympanic 12/28/18 07:41 Pulse 84 12/28/18 07:41 Pulse Rhythm Irregular 12/27/18 16:30 Respiratory Rate 16 12/28/18 07:41 Respiratory Effort Non-Labored 12/27/18 16:30 Respiratory Depth Normal 12/27/18 16:30 Respiratory Pattern Normal 12/27/18 16:30 Blood Pressure 166/76 H 12/28/18 07:41 Pulse Oximetry 96 12/28/18 07:41 Respiratory End-tidal CO2 30 12/27/18 15:45 Oxygen Delivery Method Room Air 12/28/18 07:41 Oxygen Flow Rate 0 12/28/18 07:41 Pain Level 2 12/27/18 18:30 Comment 12/27/18 06:55 Intake & Output 12/27/18 12/28/18 12/28/18 18:59 06:59 18:59 Intake Total 1671.833 / 2821.833 1150.000 / 2821.833 Output Total 760 / 1460 700 / 1460 Balance 911.833 / 1361.833 450.000 / 1361.833 Weight 61.2 kg Intake: IV 1491.833 / 2641.833 1150.000 / 2641.833 Oral 180 / 180 Output: Urine 760 / 1460 700 / 1460 Other: Urine Color Straw Yellow Urine Appearance Clear Clear Urine Odor Normal Comment Void x1 in the toilet. Emesis Description None Voiding Methods Toilet Toilet Laboratory Results WBC 11.25 k/cumm (4.4-10.8) H 12/27/18 10:20 RBC 4.05 m/cumm (4.00-5.20) 12/27/18 10:20 Hgb 12.7 g/dL (12.0-15.5) 12/27/18 10:20 Hct 36.2 % (36.0-46.0) 12/27/18 10:20 MCV 89.4 fL (80-95) 12/27/18 10:20 MCH 31.4 pg (27.0-33.0) 12/27/18 10:20 MCHC 35.1 g/dL (32.0-36.0) 12/27/18 10:20 RDW 12.5 % (11.7-14.6) 12/27/18 10:20 Plt Count 193 x1000/uL (130-400) 12/27/18 10:20 MPV 11.2 fL (8.0-11.0) H 12/27/18 10:20 Immature Gran % 0.2 12/27/18 10:20 Neutrophils % 77.3 12/27/18 10:20 Band Neutrophils % 4.0 % 12/26/18 17:00 Lymphocytes % 8.8 12/27/18 10:20 Atypical Lymphs % 3 12/26/18 17:00 Monocytes % 12.1 12/27/18 10:20 Eosinophils % 1.3 12/27/18 10:20 Basophils % 0.3 12/27/18 10:20 Absolute Neutrophils 8.70 k/cumm (1.2-6.7) H 12/27/18 10:20 Absolute Lymphocytes 0.99 k/cumm (1.2-3.4) L 12/27/18 10:20 Absolute Monocytes 1.36 k/cumm (0.11-0.7) H 12/27/18 10:20 Absolute Eosinophils 0.15 k/cumm (0.0-0.7) 12/27/18 10:20 Absolute Basophils 0.03 k/cumm (0.0-0.2) 12/27/18 10:20 Differential Comment Manual differential 12/26/18 17:00 RBC Morphology Normal 12/26/18 17:00 Sodium 137 mmol/L (136-145) 12/27/18 10:20 Potassium 3.9 mmol/L (3.5-5.1) 12/27/18 10:20 Chloride 104 mmol/L (98-107) 12/27/18 10:20 Carbon Dioxide 22.4 mmol/L (21.0-32.0) 12/27/18 10:20 Anion Gap 10.6 mmol/L (3-11) 12/27/18 10:20 BUN 17 mg/dL (7-18) 12/27/18 10:20 Creatinine 1.06 mg/dL (0.55-1.02) H 12/27/18 10:20 Estimated GFR/1.73 m2 50.01 (mL/min/1.73m2) 12/27/18 10:20 Glucose 102 mg/dL (70-100) H 12/27/18 10:20 Calcium 8.9 mg/dL (8.5-10.1) 12/27/18 10:20 Total Bilirubin 0.6 mg/dL (0.2-1.0) 12/27/18 10:20 Conjugated Bilirubin 0.17 mg/dL (0.00-0.20) 12/26/18 17:00 AST 20 U/L (15-37) 12/27/18 10:20 ALT 14 U/L (12-78) 12/27/18 10:20 Alkaline Phosphatase 97 U/L (46-116) 12/27/18 10:20 Troponin I < 0.02 ng/mL (0.00-0.06) 12/26/18 17:00 Total Protein 6.4 g/dL (6.4-8.2) 12/27/18 10:20 Albumin 2.9 g/dL (3.4-5.0) L 12/27/18 10:20 Lipase 96 U/L (73-393) 12/27/18 10:20 Documented by User: Lali Wilburn DO 12/28/18 18:40 Assessment and Plan (1) S/P laparoscopic cholecystectomy: Current visit: Yes Status: Acute pt doing well. d/w pt surgical findings and postop care. no cp or sob. no productive cough. able to urinate without pain or burning. +diarrhea. no bleeding. no leg pain or swelling. still had mild elevated WBC today. cont routine care -plan to go home on abx
[2018-12-28] MEDS: ACETAMINOPHEN 1,000 MG/100 ML BTL 400 MG IVPB ×2 (09:28→18:30)
[2018-12-28 11:08] LABS: Abs Immature Grans 0.03 k/cumm (0.0-0.09); Absolute Lymphocyte Count 0.49 k/cumm (1.2-3.4); Absolute Monocyte Count 0.96 k/cumm (0.11-0.7); HGB 10.2 g/dL (12.0-15.5); Immature Grans % 0.2; Lymphocytes % 3.8; Mean Corpuscular Hemoglobin 30.8 pg (27.0-33.0); Mean Corpuscular Volume 90.6 fL (80-95); Monocytes % 7.5; Neutrophils % 88.5; Platelet Count 172 x1000/uL (130-400); RBC 3.31 m/cumm (4.00-5.20); RBC Distribution Width 12.6 % (11.7-14.6); White Blood Cell Count 12.79 k/cumm (4.4-10.8)
[2018-12-28 11:11] LABS: Absolute Neutrophil Count 11.32 k/cumm (1.2-6.7)
[2018-12-28 11:16] LABS: ALT 71 U/L (12-78); AST 93 U/L (15-37); Albumin 2.4 g/dL (3.4-5.0); Alkaline Phosphatase 96 U/L (46-116); Anion Gap 9.2 mmol/L (3-11); BUN 19 mg/dL (7-18); Bilirubin, Total 0.4 mg/dL (0.2-1.0); CO2 21.8 mmol/L (21.0-32.0); CREATININE 1.36 mg/dL (0.55-1.02); Calcium 8.2 mg/dL (8.5-10.1); Chloride 106 mmol/L (98-107); Estimated GFR 37.51 (mL/min/1.73m2); Glucose 187 mg/dL (70-100); Potassium 3.6 mmol/L (3.5-5.1); Sodium 137 mmol/L (136-145); Total Protein 5.7 g/dL (6.4-8.2)
--- NOTE | 2018-12-28 17:15 | PDOC.CMPRO ---
Care Management Progress Note S/O: Tiara was transferring from her bed to the chair when CM entered her room. She reported when I move, I move I don't dawdle. She was pleasant in interaction and shared she is sore but without increased pain. She anticipates discharging tomorrow and regarding surgery shared he said it was the size of an egg, the largest he has ever seen. CM will continue to follow. A: 78 year old female admitted to [facility] 12/26/18 for Acute Cholecystitis P: Tiara will return home with no additional services anticipated. She will follow up with her PCP and plan of care as prescribed including activity restrictions. She will transport via private vehicle with her .
--- NOTE | 2018-12-28 17:19 | CMPROGNOTE_ITS ---
Care Management Progress Note S/O: Tiara was transferring from her bed to the chair when CM entered her room. She reported when I move, I move I don't dawdle. She was pleasant in interaction and shared she is sore but without increased pain. She anticipates discharging tomorrow and regarding surgery shared he said it was the size of an egg, the largest he has ever seen. CM will continue to follow. A: 78 year old female admitted to [facility] 12/26/18 for Acute Cholecystitis P: Tiara will return home with no additional services anticipated. She will follow up with her PCP and plan of care as prescribed including activity restrictions. She will transport via private vehicle with her .
[2018-12-28] MEDS: Normal Saline 500 ML 30 ML IV (22:35)
[2018-12-29 00:43] VITALS: BP 117/58; PULSE 67; RESP 16; TEMP 37.4; O2SAT 94
[2018-12-29] MEDS: ACETAMINOPHEN 1,000 MG/100 ML BTL 400 MG IVPB ×2 (03:23→10:30)
[2018-12-29 03:40] VITALS: BP 133/64; PULSE 70; RESP 19; TEMP 37.2; O2SAT 90
[2018-12-29 04:00] VITALS: O2SAT 97
[2018-12-29] MEDS: PIPERACILLIN/TAZO 3.375 GM in Normal Saline 50 ML IVPB ×2 (06:06→15:02)
[2018-12-29 07:23] LABS: Abs Immature Grans 0.03 k/cumm (0.0-0.09); Absolute Basophil Count 0.01 k/cumm (0.0-0.2); Absolute Eosinophil Count 0.07 k/cumm (0.0-0.7); Absolute Lymphocyte Count 0.92 k/cumm (1.2-3.4); Absolute Monocyte Count 0.97 k/cumm (0.11-0.7); Absolute Neutrophil Count 8.36 k/cumm (1.2-6.7); Basophils % 0.1; Eosinophils % 0.7; HCT 28.4 % (36.0-46.0); HGB 9.5 g/dL (12.0-15.5); Immature Grans % 0.3; Lymphocytes % 8.9; Mean Corp. HGB Concentration 33.5 g/dL (32.0-36.0); Mean Corpuscular Hemoglobin 30.8 pg (27.0-33.0); Mean Corpuscular Volume 92.2 fL (80-95); Mean Platelet Volume 11.4 fL (8.0-11.0); Monocytes % 9.4; Neutrophils % 80.6; Platelet Count 157 x1000/uL (130-400); RBC 3.08 m/cumm (4.00-5.20); RBC Distribution Width 12.9 % (11.7-14.6); White Blood Cell Count 10.36 k/cumm (4.4-10.8)
[2018-12-29 07:50] VITALS: BP 162/67; PULSE 57; RESP 18; TEMP 36.9; O2SAT 96
[2018-12-29] MEDS: Normal Saline Flush 10 ML SYR IVP (07:59)
[2018-12-29] MEDS: Enoxaparin 40 MG/0.4 ML SYR SC (07:59)
[2018-12-29 11:10] VITALS: BP 149/54; PULSE 63; RESP 18; TEMP 36.4; O2SAT 97
[2018-12-29] MEDS: IRON SUCROSE COMPLEX 100 MG in Normal Saline 100 ML 420 MG IVPB (12:23)
[2018-12-29 14:07] LABS: HCT 29.4 % (36.0-46.0); HGB 9.9 g/dL (12.0-15.5)
[2018-12-29 16:28] VITALS: BP 140/56; PULSE 72; RESP 17; TEMP 36.9; O2SAT 96
--- NOTE | 2018-12-29 16:54 | W.PM.DS.N ---
DS: Diagnosis Discharge Diagnosis (1) S/P laparoscopic cholecystectomy: Status: Acute Discharge Plan Disposition Patient Disposition: HOME Condition: Stable Discharge Details Reason For Visit: ACUTE CHOLECYSTITIS Admit Date/Time: 12/26/18 19:05 Admit Provider: Ashwini Díaz Attending Provider: Ashwini Díaz Primary Care Provider: Tracie Ghosh Home Meds and New Rx's Prescriptions: New amoxicillin-pot clavulanate [Augmentin] 875-125 mg tablet 1 tab PO BID 5 Days Qty: 10 RF: 0 hydrocodone-acetaminophen [[place]] 5-325 mg tablet 1 tab PO Q4H PRN (Reason: pain) Qty: 14 RF: 0 Continued cholecalciferol (vitamin D3) [Vitamin D3] 2,000 UNIT capsule 2,000 unit PO .QOD RF: 0 Discontinued aspirin 325 mg Tablet 325 mg PRN PRNRF: 0 Discharge Instructions Instructions: Laparoscopic Cholecystectomy (DC) Additional Instructions: Keep an ice bag on the incision. 20 minutes on and 20 minutes off. Ice keeps the swelling down and swelling causes pain. Make sure you wrap the ice pack in a towel and don't apply directly to the skin. -No driving x1 week or of you are taking pain medications. can take ibuprofen 600mg every 6hrs for pain. can use narcotic pains meds if still having severe pain. yogurt daily while on abx. -Do Not remove any steri tapes (white tapes) that cover the incision. If you have steri-tapes on your incision, do not use antibacterial ointment. -Follow-up with Dr. Wilburn in 1-2 week. will need to call clinic on monday to schedule appt -low fat diet. avoid pork for 2 wks -no straining to move bowels -pain meds are very constipating: if you do not move your bowels daily take a dose of OTC milk of magnesia -It is ok to shower. No bathe, soaking, swimming or hot tubs -Keep wound clean and dry. Wash incision with soap and water daily. Pat dry, don't rub. -You may find that your appetite is smaller. Eat 3-6 small meals throughout the day. It is important to drink lots of water after surgery, 6-10 glasses a day. -If you were given an incentive spirometry (\breathing it applications analyst\[id number]), continue to do this 10x/hour while awake. -We do want you up walking, at least 5-6 times per day. This is very important to prevent pneumonia and blood clots. You can climb stairs, take them slowly. -No lifting over 5 pounds. This is very important to avoid developing a hernia in your incision. -You may find that you are very tired after surgery- this is normal. -stop aspirin for 1 wk Stand Alone Forms: Nursing Discharge Form Activity:: nolifting over 10#'s for 2 wks Equipment/Supplies:: No Equipment Needed Diet:: low fat Discharge Orders Discharge Orders: Discharge Order (Routine); Ordered 12/29/18 Ordered By: Lali Wilburn Exam Const General: cooperative, healthy appearing, comfortable, no acute distress, well developed and well groomed Nutritional Appearance: average body habitus and well nourished Orientation: alert, awake and oriented x3 HENMT Head: normal to inspection, normocephalic and atraumatic Ears: hearing grossly normal bilaterally and external ears normal General nose exam: external nose normal Face and sinus: normal facial exam and sinuses nontender Mouth: oral mucosae normal, lip normal, tongue normal and moist mucous membranes Teeth and gingiva: dentition normal Eyes General: appearance normal, both eyes and all related structures Conjunctivae: conjunctivae normal Sclera: sclerae normal Pupils: PERRL Neck Neck: normal visual inspection and full ROM Chest Chest: normal inspection of the chest Resp Effort & Inspection: normal respiratory effort, able to speak in complete sentences, no cough, no nasal flaring, not tachypneic and no use of accessory muscles Auscultation: clear to auscultation bilaterally, no rales, no rhonchi and no wheezes Cardio Jugular venous pressure: no JVD Rate: regular rate Rhythm: regular rhythm GI Inspection: normal to inspection, no edema, non-distended and incision (incision c/d/i. + echymosis) Palpation: soft, no masses, nontender and No ascites Auscultation: normal bowel sounds Skin General skin exam: no rashes or lesions noted Trauma: no lacerations or abrasions Neuro General: alert, oriented x3, oriented, gait normal, moves all extremities, no focal motor deficits and CN's II-XI intact bilaterally Cognition: normal cognition Speech: speech normal Gait: normal gait Motor: muscle tone normal throughout Extrem General: normal to inspection, full ROM and no clubbing, cyanosis or edema Psych Appearance: grossly normal and well kempt Mental Status: mental status grossly normal Speech and Movement: speech and movement normal Affect: normal affect DS: Data Vitals/I&O Vitals and I&O: Vital Signs Temperature 36.9 C 12/29/18 16:28 Temperature Source Tympanic 12/29/18 16:28 Pulse 72 12/29/18 16:28 Pulse Rhythm Regular 12/29/18 16:47 Respiratory Rate 17 12/29/18 16:28 Respiratory Effort 12/29/18 16:47 Respiratory Depth Normal 12/29/18 16:47 Respiratory Pattern Normal 12/29/18 16:47 Blood Pressure 140/56 L 12/29/18 16:28 Pulse Oximetry 96 12/29/18 16:28 Respiratory End-tidal CO2 30 12/27/18 15:45 Oxygen Delivery Method Room Air 12/29/18 16:28 Oxygen Flow Rate 0 12/29/18 16:28 Pain Level 0 12/29/18 10:30 Comment 12/29/18 04:00 Intake & Output 12/28/18 12/29/18 12/29/18 23:59 11:59 23:59 Intake Total 2495.833 / 3263.750 900 / 1150 250 / 1150 Output Total 800 / 1200 825 / 825 Balance 1695.833 / 2063.750 75 / 325 250 / 325 Weight 64.2 kg Intake: IV 1595.833 / 2363.750 300 / 300 Oral 900 / 900 600 / 850 250 / 850 Output: Urine 800 / 1200 825 / 825 Other: Urine Color Yellow Yellow Straw Urine Appearance Clear Clear Clear Urine Odor Normal Normal Stool Size Small Stool Characteristics Liquid Brown Voiding Methods Toilet Toilet Labs on day of discharge: Labs from last 24 hours 12/29/18 12/29/18 14:00 06:15 WBC 10.36 RBC 3.08 L Hgb 9.9 L 9.5 L Hct 29.4 L 28.4 L MCV 92.2 MCH 30.8 MCHC 33.5 RDW 12.9 Plt Count 157 MPV 11.4 H Immature Gran % 0.3 Neutrophils % 80.6 Lymphocytes % 8.9 Monocytes % 9.4 Eosinophils % 0.7 Basophils % 0.1 Absolute Neutrophils 8.36 H Absolute Lymphocytes 0.92 L Absolute Monocytes 0.97 H Absolute Eosinophils 0.07 Absolute Basophils 0.01 PFSH Medical History Acute cholecystitis (Acute) Acute cholecystitis due to biliary calculus (Acute) Gallstones and inflammation of gallbladder without obstruction (Acute) Tubal ligation status (Acute) Surgical History S/P laparoscopic cholecystectomy (Acute) Hx of tonsillectomy (Chronic) Social History Smoking/Tobacco Use Status: Never Alcohol Intake: never Drug use: Never Substance use type: does not use Do you feel safe at home: Yes Do you feel safe in your relationship?: Yes
== END 2018-12-29 18:20 | disposition home or self-care (01) | DRG 419 ==
LOC: ER 19:41 → MS 19:50
PROVIDERS: Surgery; Admitting Provider Surgery; Emergency Provider Student in an Organized Health Care Education/Training Program; PCP Family Medicine; Visit Provider Surgery
PROC: 0FT44ZZ Resection of Gallbladder, Percutaneous Endoscopic Approach (ICD-10-PCS; CPT 47562; principal; 2018-12-27 12:00)
DX: K80.13 Calculus of gallbladder with acute and chronic cholecystitis with obstruction (principal)
CPT/HCPCS: 47562; 36415; 80053; 83690; 93005; 96361; 96365; 96367; 99222; 99223; 99238; 99285; J1650; NC; 74177; 82248; 84484; 85014; 85018; 85025; 88304; 93010; 99284; J0131; J0360; J1100; J1756; J2405; J2543; J3010; J3490

== ENCOUNTER → 2019-01-07 12:49 | Outpatient (BNVA) | payer MEDICARE, SELFPAY | PROVIDERS: PCP Family Medicine; Referring Provider Family Medicine; Visit Provider Surgery | DX: Z48.815 Encounter for surgical aftercare following surgery on the digestive system (principal); Z90.49 Acquired absence of other specified parts of digestive tract ==

== ENCOUNTER 2019-08-13 11:17 | Outpatient (REF) | payer MEDICARE, SELFPAY ==
[2019-08-13 13:32] LABS: Anion Gap 12.1 mmol/L (3-11); BUN 20 mg/dL (7-18); CO2 22.9 mmol/L (21.0-32.0); Calcium 9.5 mg/dL (8.5-10.1); Chloride 107 mmol/L (98-107); Estimated GFR 53.35 (mL/min/1.73m2); Glucose 113 mg/dL (70-100); Potassium 4.5 mmol/L (3.5-5.1); Sodium 142 mmol/L (136-145)
[2019-08-13 13:43] LABS: Hemoglobin A1C 6.2 % (4.5-6.2)
== END 2019-08-13 11:37 ==
LOC: NCHCN 11:17
PROVIDERS: PCP Family Medicine; Visit Provider Family Medicine
DX: R73.01 Impaired fasting glucose (principal); N18.3 Chronic kidney disease, stage 3 (moderate)
CPT/HCPCS: 80048; 83036

== ENCOUNTER 2020-05-21 00:53 | Outpatient (CLI) | payer MEDICARE, SELFPAY ==
--- NOTE | 2020-05-21 | DI.MAMMO_ITS ---
EXAM: MG MAMMO SCREENING CLINICAL HISTORY: SCREENING, [facility],Z00.00 TECHNIQUE: Bilateral full field digital CC and MLO mammographic images were obtained with 3D tomosyn thesis and utilizing computer aided detection (CAD). COMPARISON: Available for comparison. FINDINGS: Masses/Architectural Distortion: None seen. Microcalcifications: No suspicious pleomorphic-type are seen. Skin Thickening/Nipple Retraction: None. IMPRESSION: 1. No significant interval change with no specific features of malignancy noted. 2. Unless there is more urgent need, screening mammography is recommended, as per [employer] guidelines. BI-RADS Category 1 - Negative Breast Density - Category B - Scattered areas of fibroglandular density A negative radiographic report should not delay biopsy if a dominant or clinically suspicious mass is present. Up to ten percent of cancers are not identified on mammography. A negative report may reinforce clinical impression. Adenosis and dense breasts may obscure an underlying neoplasm. False positive reports average 6 to 10%. Patient will receive a letter notifying them of these results.
--- NOTE | 2020-05-21 15:31 | DI.DEXA_ITS ---
EXAM: XR DEXA BONE DENSITY W/WO KERRY CLINICAL HISTORY: SCREENING FOR OSTEOPOROSIS IN POSTMENOPAUSAL WOMAN,Z78.0,Z00.00, TECHNIQUE: COMPARISON: No exams were available for comparison FINDINGS: Lateral Spine Image: Unremarkable. No compression deformities identified. Left hip: Total T-Score: -0.9 Total Z-Score: 1.2 T- and Z-scores: Within normal limits. Lumbar Spine: Total T-Score: 0.3 Total Z-Score: 3.1 T- and Z-scores: Within normal limits. IMPRESSION: No evidence of osteoporosis.
== END 2020-05-21 01:13 ==
PROVIDERS: PCP Family Medicine; Visit Provider Family Medicine
DX: Z78.0 Asymptomatic menopausal state (principal); Z00.00 Encounter for general adult medical examination without abnormal findings; Z12.31 Encounter for screening mammogram for malignant neoplasm of breast; R92.2 Inconclusive mammogram
CPT/HCPCS: 77063; 77067; 77080

== ENCOUNTER 2020-08-05 14:43 | Outpatient (REF) | payer MEDICARE, SELFPAY ==
[2020-08-05 19:32] LABS: Anion Gap 7.7 mmol/L (3-11); BUN 22 mg/dL (7-18); CO2 26.3 mmol/L (21.0-32.0); CREATININE 1.02 mg/dL (0.55-1.02); Calcium 9.4 mg/dL (8.5-10.1); Chloride 107 mmol/L (98-107); Estimated GFR 52.01 (mL/min/1.73m2); Glucose 99 mg/dL (74-106); Potassium 4.3 mmol/L (3.5-5.1); Sodium 141 mmol/L (136-145)
== END 2020-08-05 15:03 ==
LOC: NCHCN 14:43
PROVIDERS: PCP Family Medicine; Visit Provider Family Medicine
DX: R73.03 Prediabetes (principal); N18.30 Chronic kidney disease, stage 3 unspecified
CPT/HCPCS: 80048; 83036

== ENCOUNTER 2021-08-25 15:41 | Outpatient (REF) | payer MEDICARE, SELFPAY ==
[2021-08-25 18:42] LABS: HCT 36.9 % (36.0-46.0); HGB 12.3 g/dL (11.2-15.7); MCH 30.4 pg (27.0-33.0); MCHC 33.3 % (32.0-36.0); MCV 91.3 fL (80-95); MPV 11.8 fL (8.0-11.0); Platelet Count 221 10^3/uL (130-400); RBC 4.04 10^6/uL (3.93-5.22); RDW 12.2 % (11.7-14.6); WBC 6.55 10^3/uL (4.4-10.8)
[2021-08-25 19:26] LABS: Anion Gap 10.9 mmol/L (3-11); BUN 28 mg/dL (7-18); CO2 24.1 mmol/L (21.0-32.0); CREATININE 1.7 mg/dL (0.55-1.02); Calcium 9.2 mg/dL (8.5-10.1); Chloride 111 mmol/L (98-107); Estimated GFR 28.77 (mL/min/1.73m2); Glucose 132 mg/dL (74-106); Potassium 4.3 mmol/L (3.5-5.1); Sodium 146 mmol/L (136-145)
[2021-08-25 19:33] LABS: Hemoglobin A1C 6.1 % (<5.7)
== END 2021-08-25 15:42 | disposition home or self-care (01) ==
LOC: NCHCN 15:41
PROVIDERS: PCP Family Medicine; Visit Provider Family Medicine
DX: R73.03 Prediabetes (principal); N18.30 Chronic kidney disease, stage 3 unspecified
CPT/HCPCS: 80048; 85027; 83036

== ENCOUNTER 2021-10-07 02:22 | Outpatient (CLI) | payer MEDICARE, SELFPAY ==
--- NOTE | 2021-10-07 | DI.US_ITS ---
Exam(s) US RENAL EXAM: US RENAL CLINICAL HISTORY: CHRONIC KIDNEY DISEASE,N18.31,URGE INCONTINENCE,N39.41,WORSENING RENAL TECHNIQUE: Ultrasound of both kidneys performed using standard protocol. COMPARISON: US RENAL ULTRASOUND(P) from 08/11/[address] ABDOMEN PELVIS W from 12/26/2018 FINDINGS: RIGHT KIDNEY: Measures 9.8 cm in length. No cysts evident. Normal cortical thickness and corticomedullary different iation .No solid masses No intrarenal calculi nor hydronephrosis. LEFT KIDNEY: Measures 9.5 cm in length. There is a 1.5 x 1.0 cm exophytic cyst off the inferior pole. Normal cor tical thickness and corticomedullary differentiaion. No solids masses. No intrarenal calculi nor hyd onephrosis. URINARY BLADDER: Prevoid volume is 102 cc Postvoid volume is 0 cc No evidence of bladder mass nor diverticuli. Ureterovesical jets: Both identified and appear symmetrical IMPRESSION: 1. 1.5 x 1.0 cm cyst off the inferior pole the left kidney. No other significant focal renal findin gs. 2. No obvious abnormality in urinary bladder bladder appears to empty completely. DATA REPOSITORY:
== END 2021-10-07 02:42 ==
PROVIDERS: PCP Family Medicine; Visit Provider Family Medicine
DX: N18.31 Chronic kidney disease, stage 3a (principal); N39.41 Urge incontinence; N28.1 Cyst of kidney, acquired
CPT/HCPCS: 76770

== ENCOUNTER 2021-10-12 20:18 | Outpatient (REF) | payer MEDICARE, SELFPAY ==
[2021-10-12 15:05] LABS: Anion Gap 6.5 mmol/L (3-11); BUN 31 mg/dL (7-18); CO2 28.5 mmol/L (21.0-32.0); CREATININE 1.3 mg/dL (0.55-1.02); Calcium 9.2 mg/dL (8.5-10.1); Chloride 108 mmol/L (98-107); Estimated GFR 39.21 (mL/min/1.73m2); Glucose 99 mg/dL (74-106); Potassium 4.3 mmol/L (3.5-5.1); Sodium 143 mmol/L (136-145)
[2021-10-12 15:06] LABS: Bilirubin Negative (Negative); Blood Negative (Negative); Clarity Sl Cloudy (Clear); Glucose Negative (Negative); Ketones Negative (Negative); Leukocyte Esterase Moderate (Negative); Nitrite Negative (Negative); Specific Gravity 1.025 (1.005-1.025); Urobilinogen 0.2 EU/dL (Up TO 0.2); pH 5.5 (5-8)
[2021-10-12 15:14] LABS: Bacteria Few HPF (Negative); C & S Indicated? No/Sq. Contamination; Casts Negative LPF (Negative); Crystals Negative HPF (Negative); Epithelial Cells Moderate HPF (Negative); Mucus Negative (Negative); RBC Negative HPF (0-2)
[2021-10-12 15:17] LABS: COMMENT (LAB VIEW ONLY) 104.93 mg/dL
[2021-10-12 15:26] LABS: Microalb ug/mg Crea 16.7 ug/mg Cr
== END 2021-10-12 20:19 | disposition home or self-care (01) ==
LOC: LBN 20:18
PROVIDERS: PCP Family Medicine; Visit Provider Family Medicine
DX: N18.31 Chronic kidney disease, stage 3a (principal)
CPT/HCPCS: 80048; 81003; 81015; 82043; 82570

== ENCOUNTER 2022-03-30 11:14 | Outpatient (REF) | payer MEDICARE, SELFPAY ==
[2022-03-30 14:27] LABS: Anion Gap 7.4 mmol/L (3-11); BUN 24 mg/dL (7-18); CO2 24.6 mmol/L (21.0-32.0); CREATININE 1.2 mg/dL (0.55-1.02); Calcium 9.2 mg/dL (8.5-10.1); Chloride 106 mmol/L (98-107); Glucose 130 mg/dL (74-106); Potassium 4.2 mmol/L (3.5-5.1); Sodium 138 mmol/L (136-145)
[2022-03-30 14:32] LABS: Hemoglobin A1C 6.2 % (<5.7)
== END 2022-03-30 11:15 | disposition home or self-care (01) ==
LOC: NCHCN 11:14
PROVIDERS: PCP Family Medicine; Visit Provider Family Medicine
DX: R73.03 Prediabetes (principal); N18.31 Chronic kidney disease, stage 3a
CPT/HCPCS: 80048; 83036

== ENCOUNTER 2022-08-10 15:18 | Outpatient (REF) | payer MEDICARE, SELFPAY ==
[2022-08-10 15:36] LABS: Hemoglobin A1C 6.2 % (<5.7)
[2022-08-10 16:01] LABS: Anion Gap 6.7 mmol/L (3-11); BUN 26 mg/dL (7-18); CO2 27.3 mmol/L (21.0-32.0); CREATININE 1.5 mg/dL (0.55-1.02); Calcium 9.4 mg/dL (8.5-10.1); Chloride 107 mmol/L (98-107); Estimated GFR 34.36 (mL/min/1.73m2); Glucose 159 mg/dL (74-106); Potassium 4.6 mmol/L (3.5-5.1); Sodium 141 mmol/L (136-145); TSH (W/Ref FT4) 1.27 uIU/mL (0.36-3.74)
== END 2022-08-10 15:19 | disposition home or self-care (01) ==
LOC: NCHCN 15:18
PROVIDERS: PCP Family Medicine; Visit Provider Family Medicine
DX: R73.03 Prediabetes (principal)
CPT/HCPCS: 80048; 83036; 84443

== ENCOUNTER 2022-09-20 16:07 | Outpatient (REF) | payer MEDICARE, SELFPAY ==
[2022-09-20 18:53] LABS: Anion Gap 7.5 mmol/L (3-11); BUN 25 mg/dL (7-18); CO2 28.5 mmol/L (21.0-32.0); CREATININE 1.4 mg/dL (0.55-1.02); Calcium 9.1 mg/dL (8.5-10.1); Chloride 104 mmol/L (98-107); Estimated GFR 37.33 (mL/min/1.73m2); Glucose 164 mg/dL (74-106); Potassium 4.1 mmol/L (3.5-5.1); Sodium 140 mmol/L (136-145)
== END 2022-09-20 16:08 | disposition home or self-care (01) ==
LOC: NCHCN 16:07
PROVIDERS: PCP Family Medicine; Visit Provider Family Medicine
DX: R30.0 Dysuria (principal); N18.30 Chronic kidney disease, stage 3 unspecified; I10 Essential (primary) hypertension
CPT/HCPCS: 80048; 87077; 87086; 87186

== ENCOUNTER 2022-11-04 13:25 | Outpatient (REF) | payer MEDICARE, SELFPAY ==
[2022-11-04 16:41] LABS: Bacteria Moderate HPF (Negative); C & S Indicated? C&S Done As Ordered; Casts Negative LPF (Negative); Crystals Negative HPF (Negative); Epithelial Cells Few HPF (Negative); Mucus Negative (Negative); RBC 20-50 HPF (0-2)
== END 2022-11-04 13:26 | disposition home or self-care (01) ==
LOC: LBN 13:25
PROVIDERS: PCP Family Medicine; Visit Provider Physician Assistant Medical
DX: R30.0 Dysuria (principal)
CPT/HCPCS: 81015; 87086

== ENCOUNTER 2022-11-11 18:01 | Outpatient (REF) | payer MEDICARE, SELFPAY ==
[2022-11-11 15:30] LABS: Anion Gap 8.3 mmol/L (3-11); BUN 23 mg/dL (7-18); CO2 27.7 mmol/L (21.0-32.0); CREATININE 1.5 mg/dL (0.55-1.02); Calcium 9.7 mg/dL (8.5-10.1); Chloride 108 mmol/L (98-107); Estimated GFR 34.36 (mL/min/1.73m2); Glucose 97 mg/dL (74-106); Sodium 144 mmol/L (136-145)
== END 2022-11-11 18:02 | disposition home or self-care (01) ==
LOC: NCHCN 18:01
PROVIDERS: PCP Family Medicine; Visit Provider Family Medicine
DX: I10 Essential (primary) hypertension (principal)
CPT/HCPCS: 80048

== ENCOUNTER 2022-11-30 01:06 | Outpatient (CLI) | payer MEDICARE, SELFPAY ==
--- NOTE | 2022-11-30 | DI.MAMMO_ITS ---
Exam(s) MAMMO SCREENING EXAM: MAMMO SCREENING CLINICAL HISTORY: SCREENING, Z12.39 TECHNIQUE: Bilateral full field digital CC and MLO mammographic images were obtained with 3D tomosyn thesis and utilizing computer aided detection (CAD). COMPARISON: Available for comparison. FINDINGS: Masses/Architectural Distortion: None seen. Microcalcifications: No suspicious pleomorphic-type are seen. Skin Thickening/Nipple Retraction: None. IMPRESSION: 1. No significant interval change with no specific features of malignancy noted. 2. Unless there is more urgent need, screening mammography is recommended, as per [employer] guidelines. BI-RADS Category 1 - Negative Breast Density - Category B - Scattered areas of fibroglandular density Breast density category C or D implies that the patient has dense breast tissue. Dense breast tissue is very common and is not abnormal but dense breast tissue can make it harder to find cancer on a ma mmogram. Also, dense breast tissue may increase their breast cancer risk. This information about the result of the mammogram report was provided to the patient to raise their awareness. Use this report when you speak with the patient about their risks for breast cancer, which includes their family hist ory. At that time, you may recommend for more screening tests (Ultrasound or MRI) as they might be us eful based on their risk. A negative radiographic report should not delay biopsy if a dominant or clinically suspicious mass is present. Up to ten percent of cancers are not identified on mammography. A negative report may reinforce clinical impression. Adenosis and dense breasts may obscure an underlying neoplasm. False positive reports average 6 to 10%. Patient will receive a letter notifying them of these results.
== END 2022-11-30 01:26 ==
PROVIDERS: PCP Family Medicine; Visit Provider Family Medicine
DX: Z12.31 Encounter for screening mammogram for malignant neoplasm of breast (principal)
CPT/HCPCS: 77063; 77067

== ENCOUNTER 2022-12-05 19:06 | Outpatient (REF) | payer MEDICARE, SELFPAY ==
[2022-12-05 19:08] LABS: Anion Gap 7.8 mmol/L (3-11); BUN 28 mg/dL (7-18); CO2 27.2 mmol/L (21.0-32.0); CREATININE 1.3 mg/dL (0.55-1.02); Calcium 9.5 mg/dL (8.5-10.1); Chloride 109 mmol/L (98-107); Glucose 109 mg/dL (74-106); Potassium 4.3 mmol/L (3.5-5.1); Sodium 144 mmol/L (136-145)
== END 2022-12-05 19:07 | disposition home or self-care (01) ==
LOC: NCHCN 19:06
PROVIDERS: PCP Family Medicine; Visit Provider Family Medicine
DX: I10 Essential (primary) hypertension (principal)
CPT/HCPCS: 80048

== ENCOUNTER 2022-12-30 16:21 | Outpatient (REF) | payer MEDICARE, SELFPAY ==
[2022-12-30 19:31] LABS: BUN 35 mg/dL (7-18); CREATININE 1.4 mg/dL (0.55-1.02); Calcium 9.5 mg/dL (8.5-10.1); Chloride 109 mmol/L (98-107); Estimated GFR 37.33 (mL/min/1.73m2); Glucose 80 mg/dL (74-106); Potassium 4.4 mmol/L (3.5-5.1); Sodium 145 mmol/L (136-145)
== END 2022-12-30 16:22 | disposition home or self-care (01) ==
LOC: NCHCN 16:21
PROVIDERS: PCP Family Medicine; Visit Provider Family Medicine
DX: N18.30 Chronic kidney disease, stage 3 unspecified (principal)
CPT/HCPCS: 80048

== ENCOUNTER 2023-08-25 09:07 | Outpatient (REF) | payer MEDICARE, SELFPAY ==
[2023-08-28 18:56] LABS: Anion Gap 9.1 mmol/L (3-11); BUN 32 mg/dL (7-18); CO2 25.9 mmol/L (21.0-32.0); CREATININE 1.6 mg/dL (0.55-1.02); Calcium 9.7 mg/dL (8.5-10.1); Chloride 105 mmol/L (98-107); Estimated GFR 31.61 (mL/min/1.73m2); Glucose 127 mg/dL (74-106); Potassium 4.7 mmol/L (3.5-5.1); Sodium 140 mmol/L (136-145)
[2023-08-28 19:07] LABS: Hemoglobin A1C 6.3 % (<5.7)
== END 2023-08-25 09:08 ==
LOC: NCHCN 09:07
PROVIDERS: PCP Family Medicine; Visit Provider Family Medicine
DX: R73.03 Prediabetes (principal); N18.30 Chronic kidney disease, stage 3 unspecified
CPT/HCPCS: 80048; 83036

== ENCOUNTER 2023-11-06 16:00 | Outpatient (REF) | payer MEDICARE, SELFPAY ==
[2023-11-06 17:28] LABS: Anion Gap 10.9 mmol/L (3-11); BUN 37 mg/dL (7-18); CO2 27.1 mmol/L (21.0-32.0); CREATININE 1.7 mg/dL (0.55-1.02); Calcium 9.7 mg/dL (8.5-10.1); Chloride 105 mmol/L (98-107); Estimated GFR 29.39 (mL/min/1.73m2); Glucose 132 mg/dL (74-106); Potassium 4.4 mmol/L (3.5-5.1); Sodium 143 mmol/L (136-145)
== END 2023-11-06 16:01 | disposition home or self-care (01) ==
LOC: NCHCN 16:00
PROVIDERS: PCP Family Medicine; Visit Provider Family Medicine
DX: N18.30 Chronic kidney disease, stage 3 unspecified (principal)
CPT/HCPCS: 80048

== ENCOUNTER 2023-11-13 16:04 | Outpatient (REF) | payer MEDICARE, SELFPAY ==
[2023-11-13 15:57] LABS: HCT 38.9 % (36.0-46.0); HGB 12.7 g/dL (11.2-15.7); MCH 30.1 pg (27.0-33.0); MCHC 32.6 % (32.0-36.0); MCV 92 fL (80-95); MPV 11.5 fL (8.0-11.0); Platelet Count 222 10^3/uL (130-400); RBC 4.22 10^6/uL (3.93-5.22); RDW 12.3 % (11.7-14.6); RDW-SD 41.6 fL; WBC 6.36 10^3/uL (4.4-10.8)
[2023-11-13 16:07] LABS: Bilirubin Negative (Negative); Blood Negative (Negative); Clarity Cloudy (Clear); Glucose Negative (Negative); Ketones Negative (Negative); Leukocyte Esterase Moderate (Negative); Nitrite Negative (Negative); Specific Gravity 1.025 (1.005-1.025); Urobilinogen 0.2 mg/dL (Up to 0.2); pH 5.5 (5-8)
[2023-11-13 16:17] LABS: Iron 108 ug/dL (50-170); Total Iron Binding Capacity 289 ug/dL (250-450); Transferrin Sat 37 % (15-50)
[2023-11-13 16:21] LABS: Bacteria Moderate HPF (Negative); C & S Indicated? No/Sq. Contamination; Casts Negative LPF (Negative); Crystals Negative HPF (Negative); Epithelial Cells Many HPF (Negative); Mucus Negative (Negative); RBC 0-2 HPF (0-2)
[2023-11-13 16:26] LABS: COMMENT (LAB VIEW ONLY) 119.73 mg/dL; Microalb ug/mg Crea 12.4 ug/mg Cr
[2023-11-13 16:29] LABS: Ferritin 253 ng/mL (8-252)
[2023-11-13 18:39] LABS: Vitamin D 25 Total 57.6 ng/mL (30-100)
[2023-11-14 09:17] LABS: Parathyroid Hormone,Intact 101 pg/mL (19-88)
== END 2023-11-13 16:05 | disposition home or self-care (01) ==
LOC: NCHCN 16:04
PROVIDERS: PCP Family Medicine; Visit Provider Family Medicine
DX: N18.30 Chronic kidney disease, stage 3 unspecified (principal); I10 Essential (primary) hypertension; R79.89 Other specified abnormal findings of blood chemistry; R82.998 Other abnormal findings in urine
CPT/HCPCS: 82306; 85027; 81003; 81015; 82043; 82570; 82728; 83540; 83550; 83735; 83970

== ENCOUNTER → 2024-01-09 02:24 | Outpatient (CLI) | payer MEDICARE, SELFPAY ==
--- NOTE | 2024-01-09 | DI.US_ITS ---
Exam(s) US RENAL EXAM: US RENAL CLINICAL HISTORY: STAGE 3 KIDNEY DISEASE,N18.30 TECHNIQUE: Ultrasound of both kidneys performed using standard protocol. COMPARISON: CT CT ABDOMEN PELVIS W from 12/26/2018 US US RENAL from 10/07/2021 FINDINGS: RIGHT KIDNEY: Measures 9.5 cm in length. No cysts evident. Normal cortical thickness and corticomedullary different iation .No solid masses No intrarenal calculi nor hydronephrosis. LEFT KIDNEY: Measures 9.2 cm in length. Again noted is a small exophytic cyst off the inferior pole of the left k idney measuring 11 x 11 mm. Normal cortical thickness and corticomedullary differentiaion. No solid s masses. No intrarenal calculi nor hydonephrosis. URINARY BLADDER: Prevoid volume is 128 cc Postvoid volume is 0 cc No evidence of bladder mass nor diverticuli. Ureterovesical jets: Both identified and appear symmetrical IMPRESSION: 1. No significant ultrasound findings in the kidneys. 2. No significant findings in the urinary bladder. Adequate bladder emptying demonstrated DATA REPOSITORY:
== END ==
PROVIDERS: PCP Family Medicine; Visit Provider Nurse Practitioner
DX: N18.30 Chronic kidney disease, stage 3 unspecified (principal); N28.1 Cyst of kidney, acquired; I10 Essential (primary) hypertension
CPT/HCPCS: 76770

== ENCOUNTER 2024-10-11 10:38 | Outpatient (REF) | payer MEDICARE, SELFPAY ==
[2024-10-11 15:34] LABS: Abs Immature Grans 0.03 10^3/uL (0.0-0.06); Absolute Basophil Count 0.05 10^3/uL (0.0-0.2); Absolute Eosinophil Count 0.22 10^3/uL (0.0-0.7); Absolute Lymphocyte Count 1.17 10^3/uL (1.2-3.4); Absolute Monocyte Count 0.62 10^3/uL (0.1-0.8); Absolute Neutrophil Count 5.24 10^3/uL (1.2-6.7); Basophils % 0.7 %; HCT 38.1 % (36.0-46.0); HGB 12.5 g/dL (11.2-15.7); Immature Grans % 0.4 %; MCH 30.3 pg (27.0-33.0); MCHC 32.8 % (32.0-36.0); MCV 93 fL (80-95); MPV 12.9 fL (8.0-11.0); Monocytes % 8.5 %; Neutrophils % 71.4 %; Platelet Count 165 10^3/uL (130-400); RBC 4.12 10^6/uL (3.93-5.22); RDW 12.3 % (11.7-14.6); RDW-SD 41.6 fL; WBC 7.33 10^3/uL (4.4-10.8)
[2024-10-11 15:38] LABS: Bilirubin Negative (Negative); Blood Negative (Negative); Clarity Sl Cloudy (Clear); Glucose Negative (Negative); Ketones Negative (Negative); Leukocyte Esterase Moderate (Negative); Nitrite Negative (Negative); Specific Gravity 1.025 (1.005-1.025); Urobilinogen 0.2 mg/dL (Up to 0.2); pH 5.5 (5-8)
[2024-10-11 15:49] LABS: Bacteria Few HPF (Negative); Epithelial Cells Few HPF (Negative); RBC Negative HPF (0-2)
[2024-10-11 15:50] LABS: C & S Indicated? Yes; Casts Negative LPF (Negative); Crystals Negative HPF (Negative); Mucus Moderate (Negative)
[2024-10-11 16:00] LABS: Albumin 3.7 g/dL (3.4-5.0); Anion Gap 6.4 mmol/L (3-11); BUN 24 mg/dL (7-18); CO2 29.6 mmol/L (21.0-32.0); CREATININE 1.5 mg/dL (0.55-1.02); Calcium 9.4 mg/dL (8.5-10.1); Chloride 108 mmol/L (98-107); Estimated GFR 33.94 (mL/min/1.73m2); Glucose 121 mg/dL (74-106); Potassium 4.2 mmol/L (3.5-5.1); Sodium 144 mmol/L (136-145)
[2024-10-11 16:34] LABS: COMMENT (LAB VIEW ONLY) 167.38 mg/dL; PROTEIN 22.1 mg/dL; Prot/Crea Ur Ratio 0.13
[2024-10-11 16:56] LABS: Ferritin 232 ng/mL (8-252); Vitamin D 25 Total 74.7 ng/mL (30-100)
[2024-10-11 17:26] LABS: Iron 72 ug/dL (50-170); Total Iron Binding Capacity 262 ug/dL (250-450); Transferrin Sat 27 % (15-50)
[2024-10-11 22:24] LABS: Parathyroid Hormone,Intact 84.1 pg/mL (19.0-88.0)
== END 2024-10-11 10:39 | disposition home or self-care (01) ==
LOC: NCHCN 10:38
PROVIDERS: PCP Family Medicine; Visit Provider Family Medicine
DX: N18.30 Chronic kidney disease, stage 3 unspecified (principal)
CPT/HCPCS: 80048; 82306; 81003; 81015; 82040; 82565; 82728; 83540; 83550; 83970; 84100; 84156; 85025; 87086

== ENCOUNTER 2025-06-20 03:50 | Outpatient (CLI) | payer MEDICARE, SELFPAY ==
--- NOTE | 2025-06-20 | DI.DEXA_ITS ---
Exam(s) XR DEXA BONE DENSITY W/WO KERRY EXAM: XR DEXA BONE DENSITY W/WO KERRY CLINICAL HISTORY: MENOPAUSAL STATE Z78.0 SCREENING ODTEOPOROSIS TECHNIQUE: [id number] Horizon C densitometer analysis of left hip, lumbar spine and left forearm. Lateral survey image of the thoracic and lumbar spine. COMPARISON: CR XR DEXA BONE DENSITY W/WO KERRY from 05/21/2020 FINDINGS: Lateral view of the thoracic and lumbar spine shows no evidence of compression fractures. Bone mineral density measurements of the lumbar spine correspond to a total T- score of 0.6, in the normal range. This represents a 2.2 percent increase when compared with the previous exam. The findings could in part be secondary to worsening of degenerative disc changes. Bone mineral density measurements of the left hip correspond to a total T-score of -0.2. This represents a 10.4 percent increase compared with 2020. The femoral neck T-score is -0.9, in the normal range. Theleft forearm bone mineral density measurements correspond to a T-score of the distal 3rd of -1.2, in the mildly osteopenic range. This is not significant changed from 2020. . IMPRESSION: Normal bone mineral density of the lumbar spine and hip. Mild osteopenia of the forearm.
== END 2025-06-20 04:10 ==
LOC: DI 03:50
PROVIDERS: PCP Family Medicine; Visit Provider Family Medicine
DX: Z78.0 Asymptomatic menopausal state (principal); M85.831 Other specified disorders of bone density and structure, right forearm
CPT/HCPCS: 77080